=== PATIENT | female | born 1935 | race Caucasian/White ===

== ENCOUNTER 2017-05-03 15:54 | Inpatient (IN) | payer BC ==
[2017-05-03 16:26] LABS: WHITE BLOOD COUNT 24.1 10^3/ul (4.8-10.8)
[2017-05-03 16:26] LABS: ABNORMAL IP MESSAGE 1; HEMOGLOBIN 7.4 g/dl (12.0-16.0); MEAN CORPUSCULAR HGB CONC 30.8 g/dl (32.0-37.0); MEAN CORPUSCULAR VOLUME 97.2 fl (82.0-101.0); MEAN PLATELET VOLUME 11.1 fl (7.4-10.4); NUCLEATED RED BLOOD CELLS% 1.2 /100WBC (0.0-0.0); PLATELET COUNT 202 10^3/UL (140-415); RED BLOOD COUNT 2.47 10^6/ul (4.20-5.40); RED CELL DISTRIBUTION WIDTH 19.3 % (11.5-14.5)
[2017-05-03 16:28] LABS: POSITIVE DIFF @See below
[2017-05-03 16:29] LABS: ADD MAN DIFF? YES
[2017-05-03] MEDS: SOD CHLORIDE 0.9% 1,000 ML IV ×2 (16:34)
[2017-05-03] MEDS: PIPER-TAZO 3.375 GM IV (PMX) 50 ML IVPB (16:34)
[2017-05-03 16:41] LABS: INR 1.32; PROTIME 16.6 Sec (11.9-14.9); PT RATIO 1.3
[2017-05-03 16:42] LABS: PARTIAL THROMBOPLASTIN TIME 31.5 Sec (25.0-35.0)
[2017-05-03] MEDS: VANCOMYCIN 1 GM (PMX) 250 ML IVPB (16:46)
[2017-05-03 16:48] LABS: ALANINE AMINOTRANSFERASE 52 IU/L (13-69); ALBUMIN 3.2 g/dl (3.3-4.9); ALBUMIN/GLOBULIN RATIO 0.88; ALKALINE PHOSPHATASE 250 IU/L (42-121); ANION GAP 23 (8-16); ASPARTATE AMINO TRANSFERASE 68 IU/L (15-46); BILIRUBIN,INDIRECT 0.2 mg/dl (0-1.1); BILIRUBIN,TOTAL 0.2 mg/dl (0.2-1.3); BLOOD UREA NITROGEN 80 mg/dl (7-20); CALCIUM 9.4 mg/dl (8.4-10.2); CARBON DIOXIDE 25 mmol/L (21-31); CHLORIDE 100 mmol/L (97-110); CREATININE 3.32 mg/dl (0.44-1.00); GLUCOSE 126 mg/dl (70-220); POTASSIUM 5.7 mmol/L (3.5-5.1); SODIUM 142 mmol/L (135-144); TOTAL PROTEIN 6.8 g/dl (6.1-8.1)
[2017-05-03 16:57] LABS: TROPONIN-I 0.072 ng/ml (0.00-0.12)
[2017-05-03 16:57] LABS: LACTIC ACID 2.1 mmol/L (0.5-2.0)
[2017-05-03 17:03] LABS: ANISOCYTOSIS 1+ (0-0); BAND NEUTROPHILS #M 0.9 10^3/ul (0.0-0.6); BAND NEUTROPHILS % (M) 4 % (0-4); EOSINOPHILS % (M) 2 % (0-7); ERYTHROBLAST% (NRBC) (M) 1 % (0-0); LYMPHOCYTES #M 5.7 10^3/ul (0.8-2.9); LYMPHOCYTES % (M) 24 % (15-51); MICROCYTOSIS 1+ (0-0); MONOCYTE #M 1.2 10^3/ul (0.3-0.9); MONOCYTES % (M) 5 % (0-11); MYELOCYTES #M 0.2 10^3/ul (0.0-0.0); MYELOCYTES % (M) 1 % (0-0); PLATELET ESTIMATE NORMAL; POLYCHROMASIA 1+ (0-0); PROMYELOCYTES #M 0.7 10^3/ul (0-0); PROMYELOCYTES % (M) 3 % (0-0); REACTIVE LYMPHOCYTES #M 3.3 10^3/ul (0.0-0.0); REACTIVE LYMPHOCYTES% (M) 14 % (0-0); SEG NEUT #M 11.5 10^3/ul (1.7-7.5); SEGMENTED NEUTROPHILS (M) % 47 % (39-77); SMUDGE%M 10 % (0-0)
[2017-05-03] MEDS ORDERED: ONDANSETRON 4 MG INJ IV (19:30)
[2017-05-03] MEDS ORDERED: VANCOMYCIN IV PER PHARMACY XX (19:30)
[2017-05-03] MEDS ORDERED: NACL 0.9% 3 ML SYG IV (19:30)
[2017-05-03 20:11] LABS: LACTIC ACID 1.1 mmol/L (0.5-2.0)
[2017-05-03] MEDS: PANTOPRAZOLE 40 MG INJ IV (20:31)
[2017-05-03] MEDS: CEFEPIME 2GM/50 ML (PMX) 50 ML IVPB (20:31)
[2017-05-03] MEDS ORDERED: PIPER-TAZO 3.375 GM IV (PMX) 50 ML IVPB (22:00)
[2017-05-03] MEDS: SOD CHLORIDE 0.45% 1,000 ML IV (22:15)
[2017-05-04 05:29] LABS: WHITE BLOOD COUNT 10.9 10^3/ul (4.8-10.8)
[2017-05-04 05:29] LABS: ABNORMAL IP MESSAGE 1; HEMOGLOBIN 7.7 g/dl (12.0-16.0); MEAN CORPUSCULAR HEMOGLOBIN 31.2 pg (29.0-33.0); MEAN CORPUSCULAR HGB CONC 32.1 g/dl (32.0-37.0); MEAN CORPUSCULAR VOLUME 97.2 fl (82.0-101.0); MEAN PLATELET VOLUME 11.4 fl (7.4-10.4); NUCLEATED RED BLOOD CELLS% 0.8 /100WBC (0.0-0.0); PLATELET COUNT 156 10^3/UL (140-415); RED BLOOD COUNT 2.47 10^6/ul (4.20-5.40)
[2017-05-04] MEDS: PANTOPRAZOLE 40 MG INJ IV (05:39)
[2017-05-04 05:54] LABS: ALANINE AMINOTRANSFERASE 47 IU/L (13-69); ALBUMIN 2.6 g/dl (3.3-4.9); ALBUMIN/GLOBULIN RATIO 0.81; ALKALINE PHOSPHATASE 206 IU/L (42-121); ANION GAP 18 (8-16); ASPARTATE AMINO TRANSFERASE 60 IU/L (15-46); BILIRUBIN,INDIRECT 0.2 mg/dl (0-1.1); BILIRUBIN,TOTAL 0.2 mg/dl (0.2-1.3); BLOOD UREA NITROGEN 82 mg/dl (7-20); CALCIUM 8.3 mg/dl (8.4-10.2); CARBON DIOXIDE 20 mmol/L (21-31); CHLORIDE 107 mmol/L (97-110); CREATININE 3.29 mg/dl (0.44-1.00); GLUCOSE 95 mg/dl (70-220); MAGNESIUM 2.4 mg/dl (1.7-2.5); PHOSPHORUS 6.7 mg/dl (2.5-4.9); POTASSIUM 4.9 mmol/L (3.5-5.1); SODIUM 140 mmol/L (135-144); TOTAL PROTEIN 5.8 g/dl (6.1-8.1)
[2017-05-04 06:02] LABS: POSITIVE DIFF @See below
[2017-05-04] MEDS: SOD CHLORIDE 0.45% 1,000 ML IV (06:13)
[2017-05-04 06:31] LABS: ADD MAN DIFF? YES
[2017-05-04 08:31] LABS: AADO2 Arterial 134.5 mmHg (7.0-24.0); Allen Test ACCEPTAB; Arterial Base Excess -4.2 mmol/L (-3.0-3); Arterial HCO3 18.8 mmol/L (22.0-26.0); Arterial pCO2 29.2 mmhg (35-45); Blood Gas Low PEEP Setting 0 cmH2O; MODE VENT - AC; Site Right Radial
[2017-05-04 09:15] LABS: IMMEDIATE SPIN CROSSMATCH 1 2
[2017-05-04 09:23] LABS: ANISOCYTOSIS 2+ (0-0); BAND NEUTROPHILS #M 0.9 10^3/ul (0.0-0.6); BAND NEUTROPHILS % (M) 9 % (0-4); EOSINOPHILS % (M) 4 % (0-7); ERYTHROBLAST% (NRBC) (M) 3 % (0-0); GIANT THROMBO% (M) 1 % (0-0); LYMPHOCYTES #M 1.5 10^3/ul (0.8-2.9); LYMPHOCYTES % (M) 14 % (15-51); METAMYELOCYTES #M 0.3 10^3/ul (0.0-0.0); METAMYELOCYTES %M 3 % (0-0); MICROCYTOSIS 1+ (0-0); MONOCYTE #M 0.2 10^3/ul (0.3-0.9); MONOCYTES % (M) 2 % (0-11); PLATELET ESTIMATE NORMAL; POLYCHROMASIA 3+ (0-0); SEG NEUT #M 7.4 10^3/ul (1.7-7.5); SEGMENTED NEUTROPHILS (M) % 67 % (39-77); SMUDGE%M 1 % (0-0)
[2017-05-04] MEDS: LIDOCAINE 1% (MPF) 5 ML VIAL SC (10:30)
[2017-05-04] MEDS: CEFEPIME 1GM/50 ML (PMX) 50 ML IVPB (10:30)
[2017-05-04] MEDS: PANTOPRAZOLE IV 80 MG in SOD CHLORIDE 0.9% 100 ML IV ×2 (14:03→21:51)
[2017-05-04 14:57] LABS: HEMATOCRIT 27.7 % (37.0-47.0); HEMOGLOBIN 9.1 g/dl (12.0-16.0)
[2017-05-04] MEDS: EPOETIN 10000 UNITS/1 ML INJ (ESRD) SC (16:28)
[2017-05-04] MEDS: IOHEXOL 300MG/ML 30 ML BTL ×2 (16:41)
[2017-05-04] MEDS: MEROPENEM 500MG/50 ML (PMX) 50 ML IVPB (17:20)
[2017-05-04] MEDS: LEVOFLOXACIN 750MG/D5W (PMX) 150 ML IVPB (18:00)
[2017-05-04 19:08] LABS: HEMATOCRIT 23.9 % (37.0-47.0); HEMOGLOBIN 7.8 g/dl (12.0-16.0)
[2017-05-05 01:05] LABS: HEMATOCRIT 24.8 % (37.0-47.0); HEMOGLOBIN 8.4 g/dl (12.0-16.0)
[2017-05-05 05:44] LABS: ADD MAN DIFF? NO
[2017-05-05 06:54] LABS: VANCOMYCIN,RANDOM 13.1 ug/ml
[2017-05-05 08:36] LABS: WHITE BLOOD COUNT 7.3 10^3/ul (4.8-10.8)
[2017-05-05 08:36] LABS: ABNORMAL IP MESSAGE 1; BASOPHILS % 0.4 % (0.0-2.0); EOSINOPHILS # 0.3 10^3/ul (0.0-0.5); EOSINOPHILS % 3.8 % (0.0-7.0); HEMATOCRIT 25.6 % (37.0-47.0); HEMOGLOBIN 8.7 g/dl (12.0-16.0); LYMPHOCYTES # 1.6 10^3/ul (0.8-2.9); LYMPHOCYTES % 21.8 % (15.0-51.0); MEAN CORPUSCULAR HEMOGLOBIN 31.1 pg (29.0-33.0); MEAN CORPUSCULAR VOLUME 91.4 fl (82.0-101.0); MEAN PLATELET VOLUME 11.3 fl (7.4-10.4); MONOCYTE # 0.4 10^3/ul (0.3-0.9); MONOCYTES % 4.8 % (0.0-11.0); NEUTROPHIL # 4.6 10^3/ul (1.6-7.5); NEUTROPHILS % 62.7 % (39.0-77.0); NUCLEATED RED BLOOD CELLS # 0.1 10^3/ul (0.0-0.0); PLATELET COUNT 132 10^3/UL (140-415); RED CELL DISTRIBUTION WIDTH 17.4 % (11.5-14.5)
[2017-05-05 08:37] LABS: POSITIVE DIFF @See below
[2017-05-05] MEDS: PANTOPRAZOLE IV 80 MG in SOD CHLORIDE 0.9% 100 ML IV ×2 (09:02→18:06)
[2017-05-05 09:19] LABS: ANION GAP 18 (8-16); BLOOD UREA NITROGEN 51 mg/dl (7-20); CALCIUM 7.8 mg/dl (8.4-10.2); CARBON DIOXIDE 19 mmol/L (21-31); CHLORIDE 105 mmol/L (97-110); CREATININE 2.06 mg/dl (0.44-1.00); GLUCOSE 76 mg/dl (70-220); PHOSPHORUS 5.6 mg/dl (2.5-4.9); POTASSIUM 3.8 mmol/L (3.5-5.1); SODIUM 138 mmol/L (135-144)
[2017-05-05 09:42] LABS: ANISOCYTOSIS 1+ (0-0); BAND NEUTROPHILS #M 0.9 10^3/ul (0.0-0.6); BAND NEUTROPHILS % (M) 13 % (0-4); EOSINOPHILS % (M) 1 % (0-7); ERYTHROBLAST% (NRBC) (M) 1 % (0-0); LYMPHOCYTES #M 0.6 10^3/ul (0.8-2.9); LYMPHOCYTES % (M) 9 % (15-51); METAMYELOCYTES %M 1 % (0-0); MICROCYTOSIS 1+ (0-0); MONOCYTE #M 0.2 10^3/ul (0.3-0.9); MONOCYTES % (M) 3 % (0-11); PLATELET ESTIMATE DECREASED; POIKILOCYTOSIS 1+ (0-0); POLYCHROMASIA 3+ (0-0); REACTIVE LYMPHOCYTES #M 0.8 10^3/ul (0.0-0.0); REACTIVE LYMPHOCYTES% (M) 11 % (0-0); SEG NEUT #M 4.7 10^3/ul (1.7-7.5); SEGMENTED NEUTROPHILS (M) % 63 % (39-77); SMUDGE%M 2 % (0-0)
[2017-05-05] MEDS ORDERED: CEFEPIME 1GM/50 ML (PMX) 50 ML IVPB (12:00)
[2017-05-05 12:23] LABS: HEMATOCRIT 25.6 % (37.0-47.0); HEMOGLOBIN 8.6 g/dl (12.0-16.0)
[2017-05-05] MEDS: NYSTATIN SUSP 5 ML CUP PO ×3 (13:18→21:00)
[2017-05-05] MEDS: VANCOMYCIN 1 GM in NS 250 ML IVPB (16:09)
[2017-05-05] MEDS: MEROPENEM 500MG/50 ML (PMX) 50 ML IVPB (18:06)
[2017-05-05 19:07] LABS: HEMATOCRIT 23.3 % (37.0-47.0); HEMOGLOBIN 7.7 g/dl (12.0-16.0)
[2017-05-06] MEDS: PANTOPRAZOLE IV 80 MG in SOD CHLORIDE 0.9% 100 ML IV ×2 (03:00→05:42)
[2017-05-06] MEDS ORDERED: DIATR MEGLU/DIATRIZOATE SODIUM 120 ML BTL (09:36)
[2017-05-06 09:37] LABS: HEMATOCRIT 27.3 % (37.0-47.0); HEMOGLOBIN 8.8 g/dl (12.0-16.0); MEAN CORPUSCULAR HEMOGLOBIN 30.9 pg (29.0-33.0); MEAN CORPUSCULAR HGB CONC 32.2 g/dl (32.0-37.0); MEAN CORPUSCULAR VOLUME 95.8 fl (82.0-101.0); MEAN PLATELET VOLUME 11.9 fl (7.4-10.4); NUCLEATED RED BLOOD CELLS% 0.7 /100WBC (0.0-0.0); PLATELET COUNT 137 10^3/UL (140-415); RED BLOOD COUNT 2.85 10^6/ul (4.20-5.40); RED CELL DISTRIBUTION WIDTH 17.5 % (11.5-14.5)
[2017-05-06 09:37] LABS: WHITE BLOOD COUNT 6.9 10^3/ul (4.8-10.8)
[2017-05-06 09:49] LABS: POSITIVE DIFF @See below
[2017-05-06 09:50] LABS: ADD MAN DIFF? YES
[2017-05-06] MEDS: NYSTATIN SUSP 5 ML CUP PO ×4 (10:01→22:08)
[2017-05-06 10:08] LABS: ANION GAP 17 (8-16); BLOOD UREA NITROGEN 63 mg/dl (7-20); CALCIUM 8.6 mg/dl (8.4-10.2); CARBON DIOXIDE 20 mmol/L (21-31); CHLORIDE 105 mmol/L (97-110); CREATININE 2.82 mg/dl (0.44-1.00); GLUCOSE 54 mg/dl (70-220); MAGNESIUM 2.2 mg/dl (1.7-2.5); PHOSPHORUS 8.3 mg/dl (2.5-4.9); POTASSIUM 4.2 mmol/L (3.5-5.1); SODIUM 138 mmol/L (135-144)
[2017-05-06 11:04] LABS: ANISOCYTOSIS 2+ (0-0); BAND NEUTROPHILS % (M) 1 % (0-4); EOSINOPHILS % (M) 4 % (0-7); ERYTHROBLAST% (NRBC) (M) 1 % (0-0); GIANT THROMBO% (M) 2 % (0-0); LYMPHOCYTES #M 1.9 10^3/ul (0.8-2.9); LYMPHOCYTES % (M) 28 % (15-51); MICROCYTOSIS 1+ (0-0); MONOCYTE #M 0.2 10^3/ul (0.3-0.9); MONOCYTES % (M) 4 % (0-11); PLATELET ESTIMATE NORMAL; POIKILOCYTOSIS 2+ (0-0); POLYCHROMASIA 3+ (0-0); REACTIVE LYMPHOCYTES #M 0.2 10^3/ul (0.0-0.0); REACTIVE LYMPHOCYTES% (M) 3 % (0-0); SEG NEUT #M 4.1 10^3/ul (1.7-7.5); SEGMENTED NEUTROPHILS (M) % 60 % (39-77)
[2017-05-06 15:06] LABS: CREATINE KINASE 40 IU/L (23-200)
[2017-05-06] MEDS ORDERED: LEVOFLOXACIN 500MG/D5W (PMX) 100 ML IVPB (18:00)
[2017-05-06] MEDS: EPOETIN 10000 UNITS/1 ML INJ (ESRD) SC (18:29)
[2017-05-06] MEDS: COLISTIMETHATE 75 MG in SOD CHLORIDE 0.9% 100 ML IVPB (18:29)
[2017-05-06] MEDS: DAPTOMYCIN 325 MG in SOD CHLORIDE 0.9% 100 ML IVPB (22:08)
[2017-05-07] MEDS: PANTOPRAZOLE IV 80 MG in SOD CHLORIDE 0.9% 100 ML IV ×3 (00:16→21:49)
[2017-05-07] MEDS: COLLAGENASE 30 GM TUBE TOP (09:00)
[2017-05-07] MEDS: NYSTATIN SUSP 5 ML CUP PO ×4 (09:19→21:49)
[2017-05-07] MEDS: COLISTIMETHATE 75 MG in SOD CHLORIDE 0.9% 100 ML IVPB (17:56)
[2017-05-07] MEDS: morphine 2 MG INJ IV (22:10)
[2017-05-08] MEDS: SOD CHLORIDE 0.9% 250 ML IV (02:28)
[2017-05-08] MEDS: LORAZEPAM 2 MG INJ IV (02:29)
[2017-05-08] MEDS: ACETAMINOPHEN 650MG/20.3ML CUP GTB (02:29)
[2017-05-08 06:38] LABS: WHITE BLOOD COUNT 7.3 10^3/ul (4.8-10.8)
[2017-05-08 06:38] LABS: HEMATOCRIT 22.8 % (37.0-47.0); HEMOGLOBIN 7.2 g/dl (12.0-16.0); MEAN CORPUSCULAR HGB CONC 31.6 g/dl (32.0-37.0); MEAN CORPUSCULAR VOLUME 98.3 fl (82.0-101.0); MEAN PLATELET VOLUME 11.4 fl (7.4-10.4); PLATELET COUNT 134 10^3/UL (140-415); RED BLOOD COUNT 2.32 10^6/ul (4.20-5.40); RED CELL DISTRIBUTION WIDTH 18.5 % (11.5-14.5)
[2017-05-08] MEDS: PANTOPRAZOLE IV 80 MG in SOD CHLORIDE 0.9% 100 ML IV ×2 (07:01→21:27)
[2017-05-08 07:05] LABS: ALANINE AMINOTRANSFERASE 39 IU/L (13-69); ALBUMIN 2.5 g/dl (3.3-4.9); ALKALINE PHOSPHATASE 178 IU/L (42-121); ASPARTATE AMINO TRANSFERASE 37 IU/L (15-46); BILIRUBIN,INDIRECT 0.3 mg/dl (0-1.1); BILIRUBIN,TOTAL 0.3 mg/dl (0.2-1.3); TOTAL PROTEIN 5.6 g/dl (6.1-8.1)
[2017-05-08 07:09] LABS: ANION GAP 17 (8-16); BLOOD UREA NITROGEN 48 mg/dl (7-20); CALCIUM 8.2 mg/dl (8.4-10.2); CARBON DIOXIDE 23 mmol/L (21-31); CHLORIDE 111 mmol/L (97-110); CREATININE 2.86 mg/dl (0.44-1.00); GLUCOSE 149 mg/dl (70-220); MAGNESIUM 2.3 mg/dl (1.7-2.5); PHOSPHORUS 6.9 mg/dl (2.5-4.9); POTASSIUM 4.1 mmol/L (3.5-5.1); SODIUM 147 mmol/L (135-144)
[2017-05-08 07:11] LABS: ADD MAN DIFF? YES; POSITIVE DIFF @See below
[2017-05-08 07:18] LABS: IRON 145 ug/dl (35-150)
[2017-05-08 07:27] LABS: % IRON SATURATION 90 % SAT (22-52); TOTAL IRON BINDING CAPACITY 162 ug/dl (241-421)
[2017-05-08] MEDS: COLLAGENASE 30 GM TUBE TOP (09:22)
[2017-05-08] MEDS: NYSTATIN SUSP 5 ML CUP PO ×4 (09:22→21:27)
[2017-05-08 11:23] LABS: ANISOCYTOSIS 2+ (0-0); BAND NEUTROPHILS #M 0.3 10^3/ul (0.0-0.6); BAND NEUTROPHILS % (M) 5 % (0-4); BASOPHILS % (M) 1 % (0-2); EOSINOPHILS % (M) 2 % (0-7); LYMPHOCYTES % (M) 14 % (15-51); METAMYELOCYTES %M 1 % (0-0); MICROCYTOSIS 2+ (0-0); MONOCYTES % (M) 15 % (0-11); PLATELET ESTIMATE NORMAL; PROMYELOCYTES % (M) 1 % (0-0); REACTIVE LYMPHOCYTES #M 1.5 10^3/ul (0.0-0.0); REACTIVE LYMPHOCYTES% (M) 21 % (0-0); SEGMENTED NEUTROPHILS (M) % 41 % (39-77); SMUDGE%M 4 % (0-0)
[2017-05-08] MEDS: COLISTIMETHATE 75 MG in SOD CHLORIDE 0.9% 100 ML IVPB (18:47)
[2017-05-08] MEDS: DAPTOMYCIN 325 MG in SOD CHLORIDE 0.9% 100 ML IVPB (21:24)
[2017-05-08] MEDS: ACYCLOVIR 400 MG TAB GTB (21:41)
[2017-05-09] MEDS: PANTOPRAZOLE IV 80 MG in SOD CHLORIDE 0.9% 100 ML IV ×2 (06:00→08:56)
[2017-05-09] MEDS: NYSTATIN SUSP 5 ML CUP PO ×4 (08:52→21:00)
[2017-05-09] MEDS: COLLAGENASE 30 GM TUBE TOP (08:53)
[2017-05-09] MEDS: ACYCLOVIR 400 MG TAB GTB (08:53)
[2017-05-09 10:25] LABS: HEMOGLOBIN 7.3 g/dl (12.0-16.0); MEAN CORPUSCULAR HEMOGLOBIN 31.7 pg (29.0-33.0); MEAN CORPUSCULAR HGB CONC 31.7 g/dl (32.0-37.0); MEAN PLATELET VOLUME 11.2 fl (7.4-10.4); NUCLEATED RED BLOOD CELLS% 1.9 /100WBC (0.0-0.0); PLATELET COUNT 134 10^3/UL (140-415); RED CELL DISTRIBUTION WIDTH 18.9 % (11.5-14.5)
[2017-05-09 10:25] LABS: WHITE BLOOD COUNT 8.6 10^3/ul (4.8-10.8)
[2017-05-09 10:35] LABS: POSITIVE DIFF @See below
[2017-05-09 10:36] LABS: ADD MAN DIFF? YES
[2017-05-09 10:54] LABS: ANION GAP 15 (8-16); BLOOD UREA NITROGEN 38 mg/dl (7-20); CALCIUM 8.2 mg/dl (8.4-10.2); CARBON DIOXIDE 25 mmol/L (21-31); CHLORIDE 111 mmol/L (97-110); CREATININE 2.53 mg/dl (0.44-1.00); GLUCOSE 138 mg/dl (70-220); POTASSIUM 3.5 mmol/L (3.5-5.1); SODIUM 147 mmol/L (135-144)
[2017-05-09 11:36] LABS: ANISOCYTOSIS 1+ (0-0); BAND NEUTROPHILS #M 0.5 10^3/ul (0.0-0.6); BAND NEUTROPHILS % (M) 6 % (0-4); EOSINOPHILS % (M) 9 % (0-7); ERYTHROBLAST% (NRBC) (M) 3 % (0-0); LYMPHOCYTES #M 2.5 10^3/ul (0.8-2.9); LYMPHOCYTES % (M) 30 % (15-51); MICROCYTOSIS 1+ (0-0); MONOCYTE #M 0.4 10^3/ul (0.3-0.9); MONOCYTES % (M) 5 % (0-11); PLATELET ESTIMATE NORMAL; POIKILOCYTOSIS 1+ (0-0); POLYCHROMASIA 3+ (0-0); REACTIVE LYMPHOCYTES #M 0.1 10^3/ul (0.0-0.0); REACTIVE LYMPHOCYTES% (M) 2 % (0-0); SEG NEUT #M 4.3 10^3/ul (1.7-7.5); SEGMENTED NEUTROPHILS (M) % 49 % (39-77); SMUDGE%M 1 % (0-0)
[2017-05-09] MEDS: LANSOPRAZOLE 30 MG CAP GTB (17:12)
[2017-05-09] MEDS: EPOETIN 10000 UNITS/1 ML INJ (ESRD) SC (17:13)
[2017-05-09] MEDS: COLISTIMETHATE 75 MG in SOD CHLORIDE 0.9% 100 ML IVPB (23:47)
[2017-05-10] MEDS: LANSOPRAZOLE 30 MG CAP GTB ×2 (05:23→18:30)
[2017-05-10 07:16] LABS: PROCALCITONIN 2.88 ng/mL (<0.10)
[2017-05-10] MEDS: NYSTATIN SUSP 5 ML CUP PO ×4 (08:45→21:19)
[2017-05-10] MEDS: COLLAGENASE 30 GM TUBE TOP (08:45)
[2017-05-10 08:51] LABS: WHITE BLOOD COUNT 6.9 10^3/ul (4.8-10.8)
[2017-05-10 08:51] LABS: ABNORMAL IP MESSAGE 1; HEMATOCRIT 22.1 % (37.0-47.0); MEAN CORPUSCULAR HEMOGLOBIN 30.9 pg (29.0-33.0); MEAN CORPUSCULAR HGB CONC 30.8 g/dl (32.0-37.0); MEAN CORPUSCULAR VOLUME 100.5 fl (82.0-101.0); MEAN PLATELET VOLUME 11.2 fl (7.4-10.4); NUCLEATED RED BLOOD CELLS% 1.5 /100WBC (0.0-0.0); PLATELET COUNT 134 10^3/UL (140-415); RED CELL DISTRIBUTION WIDTH 19.3 % (11.5-14.5)
[2017-05-10 09:06] LABS: ADD MAN DIFF? YES; HEMOGLOBIN 6.8 g/dl (12.0-16.0); POSITIVE DIFF @See below
[2017-05-10] MEDS: ACETAMINOPHEN 650MG/20.3ML CUP GTB (09:42)
[2017-05-10 10:25] LABS: ANION GAP 15 (8-16); BLOOD UREA NITROGEN 48 mg/dl (7-20); CALCIUM 8.3 mg/dl (8.4-10.2); CARBON DIOXIDE 24 mmol/L (21-31); CHLORIDE 109 mmol/L (97-110); CREATININE 3.01 mg/dl (0.44-1.00); GLUCOSE 104 mg/dl (70-220); MAGNESIUM 2.3 mg/dl (1.7-2.5); PHOSPHORUS 5.3 mg/dl (2.5-4.9); POTASSIUM 4.2 mmol/L (3.5-5.1); SODIUM 144 mmol/L (135-144)
[2017-05-10 10:30] LABS: ANISOCYTOSIS 1+ (0-0); BAND NEUTROPHILS #M 1.1 10^3/ul (0.0-0.6); BAND NEUTROPHILS % (M) 16 % (0-4); EOSINOPHILS % (M) 15 % (0-7); ERYTHROBLAST% (NRBC) (M) 2 % (0-0); LYMPHOCYTES #M 2.9 10^3/ul (0.8-2.9); LYMPHOCYTES % (M) 43 % (15-51); METAMYELOCYTES %M 1 % (0-0); MONOCYTE #M 0.2 10^3/ul (0.3-0.9); MONOCYTES % (M) 3 % (0-11); OVALOCYTES 1+ (0-0); PLATELET ESTIMATE DECREASED; PROMYELOCYTES % (M) 1 % (0-0); SEG NEUT #M 1.5 10^3/ul (1.7-7.5); SEGMENTED NEUTROPHILS (M) % 21 % (39-77)
[2017-05-10 16:08] LABS: LACTIC ACID 2.1 mmol/L (0.5-2.0)
[2017-05-10] MEDS: COLISTIMETHATE 75 MG in SOD CHLORIDE 0.9% 100 ML IVPB (18:09)
[2017-05-10] MEDS: DAPTOMYCIN 325 MG in SOD CHLORIDE 0.9% 100 ML IVPB (21:19)
[2017-05-10 22:28] LABS: IMMEDIATE SPIN CROSSMATCH 1 2
[2017-05-11] MEDS: LANSOPRAZOLE 30 MG CAP GTB ×2 (05:32→17:17)
[2017-05-11] MEDS: COLLAGENASE 30 GM TUBE TOP (08:23)
[2017-05-11] MEDS: NYSTATIN SUSP 5 ML CUP PO ×4 (08:23→21:20)
[2017-05-11 08:51] LABS: WHITE BLOOD COUNT 6.4 10^3/ul (4.8-10.8)
[2017-05-11 08:51] LABS: ABNORMAL IP MESSAGE 1; HEMATOCRIT 23.8 % (37.0-47.0); HEMOGLOBIN 7.6 g/dl (12.0-16.0); MEAN CORPUSCULAR HEMOGLOBIN 30.6 pg (29.0-33.0); MEAN CORPUSCULAR HGB CONC 31.9 g/dl (32.0-37.0); MEAN PLATELET VOLUME 11.1 fl (7.4-10.4); NUCLEATED RED BLOOD CELLS% 0.6 /100WBC (0.0-0.0); RED BLOOD COUNT 2.48 10^6/ul (4.20-5.40); RED CELL DISTRIBUTION WIDTH 18.3 % (11.5-14.5)
[2017-05-11 09:01] LABS: ADD MAN DIFF? YES; PLATELET COUNT 99 10^3/UL (140-415); POSITIVE DIFF @See below
[2017-05-11 09:47] LABS: ANION GAP 12 (8-16); BLOOD UREA NITROGEN 34 mg/dl (7-20); CALCIUM 8.6 mg/dl (8.4-10.2); CARBON DIOXIDE 28 mmol/L (21-31); CHLORIDE 101 mmol/L (97-110); CREATININE 2.33 mg/dl (0.44-1.00); GLUCOSE 104 mg/dl (70-220); MAGNESIUM 2.1 mg/dl (1.7-2.5); PHOSPHORUS 4.5 mg/dl (2.5-4.9); POTASSIUM 4.1 mmol/L (3.5-5.1); SODIUM 137 mmol/L (135-144)
[2017-05-11 10:43] LABS: ANISOCYTOSIS 1+ (0-0); BAND NEUTROPHILS #M 1.4 10^3/ul (0.0-0.6); BAND NEUTROPHILS % (M) 23 % (0-4); EOSINOPHILS % (M) 9 % (0-7); GIANT THROMBO% (M) 4 % (0-0); HYPOCHROMASIA 1+ (0-0); LYMPHOCYTES #M 1.5 10^3/ul (0.8-2.9); LYMPHOCYTES % (M) 24 % (15-51); METAMYELOCYTES #M 0.1 10^3/ul (0.0-0.0); METAMYELOCYTES %M 3 % (0-0); MICROCYTOSIS 1+ (0-0); MONOCYTE #M 0.5 10^3/ul (0.3-0.9); MONOCYTES % (M) 8 % (0-11); PLATELET ESTIMATE DECREASED; POLYCHROMASIA 1+ (0-0); REACTIVE LYMPHOCYTES #M 0.1 10^3/ul (0.0-0.0); REACTIVE LYMPHOCYTES% (M) 2 % (0-0); SEG NEUT #M 2.1 10^3/ul (1.7-7.5); SEGMENTED NEUTROPHILS (M) % 31 % (39-77); SMUDGE%M 7 % (0-0)
[2017-05-11] MEDS ORDERED: ALBUTEROL 0.083% (NEB) 2.5 MG/3 ML AMP HHN (11:30)
[2017-05-11] MEDS ORDERED: traMADol 50 MG TAB GTB (11:30)
[2017-05-11] MEDS ORDERED: ALBUTEROL/IPRATROPIUM (NEB) 3 ML AMP INH (12:00)
[2017-05-11] MEDS: L ACIDOPHIL/B LACTIS/B LONGUM CAPSULE PO ×2 (14:43→21:20)
[2017-05-11] MEDS ORDERED: ALBUTEROL HFA 8 GM INHALER INH (15:00)
[2017-05-11] MEDS: ALBUTEROL HFA 8 GM INHALER INH ×2 (16:52→19:29)
[2017-05-11] MEDS: IPRATROPIUM (HFA) 12.9 GM INHALER INH ×2 (16:55→19:28)
[2017-05-11] MEDS: EPOETIN 10000 UNITS/1 ML INJ (ESRD) SC (17:18)
[2017-05-11] MEDS: COLISTIMETHATE 75 MG in SOD CHLORIDE 0.9% 100 ML IVPB (18:36)
[2017-05-11] MEDS ORDERED: PROTEIN SUPPLEMENT GTB (21:00)
[2017-05-11] MEDS: QUETIAPINE 25 MG TAB GTB (21:20)
[2017-05-11] MEDS: DIVALPROEX SPRINKLE 125 MG CAP GTB (21:21)
[2017-05-12] MEDS: IPRATROPIUM (HFA) 12.9 GM INHALER INH ×4 (01:14→19:54)
[2017-05-12] MEDS: ALBUTEROL HFA 8 GM INHALER INH ×2 (01:15→08:08)
[2017-05-12] MEDS: LEVOTHYROXINE 75 MCG TAB GTB (06:23)
[2017-05-12] MEDS: LANSOPRAZOLE 30 MG CAP GTB ×2 (06:24→17:44)
[2017-05-12] MEDS: L ACIDOPHIL/B LACTIS/B LONGUM CAPSULE PO ×3 (06:24→21:24)
[2017-05-12] MEDS: NYSTATIN SUSP 5 ML CUP PO ×4 (08:55→21:23)
[2017-05-12] MEDS: COLLAGENASE 30 GM TUBE TOP (08:56)
[2017-05-12] MEDS: FOLIC ACID 1 MG TAB GTB (08:56)
[2017-05-12] MEDS: SILVER SULFADIAZINE 1% 50 GM CR TOP (08:56)
[2017-05-12] MEDS: MULTIVIT/CA CARB/B CMPLX/FA TAB GTB (08:56)
[2017-05-12 09:20] LABS: WHITE BLOOD COUNT 8.4 10^3/ul (4.8-10.8)
[2017-05-12 09:20] LABS: ABNORMAL IP MESSAGE 1; HEMATOCRIT 29.6 % (37.0-47.0); HEMOGLOBIN 9.7 g/dl (12.0-16.0); MEAN CORPUSCULAR HGB CONC 32.8 g/dl (32.0-37.0); MEAN CORPUSCULAR VOLUME 94.6 fl (82.0-101.0); MEAN PLATELET VOLUME 10.7 fl (7.4-10.4); NUCLEATED RED BLOOD CELLS% 0.4 /100WBC (0.0-0.0); RED BLOOD COUNT 3.13 10^6/ul (4.20-5.40)
[2017-05-12 09:21] LABS: PLATELET COUNT 128 10^3/UL (140-415); POSITIVE DIFF @See below
[2017-05-12 09:22] LABS: ADD MAN DIFF? YES
[2017-05-12 09:37] LABS: ANION GAP 16 (8-16); BLOOD UREA NITROGEN 42 mg/dl (7-20); CALCIUM 9.5 mg/dl (8.4-10.2); CARBON DIOXIDE 27 mmol/L (21-31); CHLORIDE 97 mmol/L (97-110); CREATININE 2.75 mg/dl (0.44-1.00); GLUCOSE 106 mg/dl (70-220); MAGNESIUM 2.3 mg/dl (1.7-2.5); PHOSPHORUS 5.4 mg/dl (2.5-4.9); POTASSIUM 4.8 mmol/L (3.5-5.1); SODIUM 135 mmol/L (135-144)
[2017-05-12] MEDS ORDERED: LEVALBUTEROL (NEB) 0.63 MG/3 ML AMP HHN (10:30)
[2017-05-12] MEDS: traMADol 50 MG TAB GTB ×2 (12:54→17:44)
[2017-05-12 12:55] LABS: ANISOCYTOSIS 2+ (0-0); BAND NEUTROPHILS % (M) 13 % (0-4); EOSINOPHILS % (M) 4 % (0-7); LYMPHOCYTES #M 2.3 10^3/ul (0.8-2.9); LYMPHOCYTES % (M) 28 % (15-51); METAMYELOCYTES %M 1 % (0-0); MICROCYTOSIS 1+ (0-0); MONOCYTE #M 0.5 10^3/ul (0.3-0.9); MONOCYTES % (M) 7 % (0-11); PLATELET ESTIMATE INCREASED; REACTIVE LYMPHOCYTES% (M) 1 % (0-0); SEG NEUT #M 3.9 10^3/ul (1.7-7.5); SEGMENTED NEUTROPHILS (M) % 46 % (39-77); SMUDGE%M 2 % (0-0)
[2017-05-12] MEDS: ALPRAZOLAM 0.25 MG TAB GTB (13:47)
[2017-05-12] MEDS: COLISTIMETHATE 75 MG in SOD CHLORIDE 0.9% 100 ML IVPB (17:45)
[2017-05-12] MEDS: ACETAMINOPHEN 650MG/20.3ML CUP GTB (21:23)
[2017-05-12] MEDS: DAPTOMYCIN 325 MG in SOD CHLORIDE 0.9% 100 ML IVPB (21:23)
[2017-05-12] MEDS: QUETIAPINE 25 MG TAB GTB (21:23)
[2017-05-12] MEDS: DIVALPROEX SPRINKLE 125 MG CAP GTB (21:24)
[2017-05-13] MEDS: traMADol 50 MG TAB GTB ×5 (00:42→23:57)
[2017-05-13] MEDS: IPRATROPIUM (HFA) 12.9 GM INHALER INH ×4 (01:21→19:28)
[2017-05-13] MEDS: L ACIDOPHIL/B LACTIS/B LONGUM CAPSULE PO ×3 (06:13→22:03)
[2017-05-13] MEDS: LANSOPRAZOLE 30 MG CAP GTB ×2 (06:13→17:36)
[2017-05-13] MEDS: LEVOTHYROXINE 75 MCG TAB GTB (06:13)
[2017-05-13 07:30] LABS: CREATINE KINASE 80 IU/L (23-200)
[2017-05-13] MEDS: SILVER SULFADIAZINE 1% 50 GM CR TOP (09:00)
[2017-05-13] MEDS: NYSTATIN SUSP 5 ML CUP PO ×4 (09:00→22:03)
[2017-05-13] MEDS: FOLIC ACID 1 MG TAB GTB (09:00)
[2017-05-13] MEDS: MULTIVIT/CA CARB/B CMPLX/FA TAB GTB (09:00)
[2017-05-13] MEDS: COLLAGENASE 30 GM TUBE TOP (09:00)
[2017-05-13 10:04] LABS: ABNORMAL IP MESSAGE 1; HEMATOCRIT 27.3 % (37.0-47.0); HEMOGLOBIN 8.9 g/dl (12.0-16.0); MEAN CORPUSCULAR HEMOGLOBIN 31.3 pg (29.0-33.0); MEAN CORPUSCULAR HGB CONC 32.6 g/dl (32.0-37.0); MEAN CORPUSCULAR VOLUME 96.1 fl (82.0-101.0); MEAN PLATELET VOLUME 10.3 fl (7.4-10.4); NUCLEATED RED BLOOD CELLS% 0.4 /100WBC (0.0-0.0); PLATELET COUNT 219 10^3/UL (140-415); RED BLOOD COUNT 2.84 10^6/ul (4.20-5.40); RED CELL DISTRIBUTION WIDTH 19.7 % (11.5-14.5)
[2017-05-13 10:04] LABS: WHITE BLOOD COUNT 8.5 10^3/ul (4.8-10.8)
[2017-05-13 10:10] LABS: ADD MAN DIFF? YES; POSITIVE DIFF @See below
[2017-05-13 10:49] LABS: ANISOCYTOSIS 1+ (0-0); BAND NEUTROPHILS #M 1.7 10^3/ul (0.0-0.6); BAND NEUTROPHILS % (M) 20 % (0-4); EOSINOPHILS % (M) 7 % (0-7); ERYTHROBLAST% (NRBC) (M) 1 % (0-0); LYMPHOCYTES #M 2.7 10^3/ul (0.8-2.9); LYMPHOCYTES % (M) 32 % (15-51); METAMYELOCYTES #M 0.1 10^3/ul (0.0-0.0); METAMYELOCYTES %M 2 % (0-0); MICROCYTOSIS 1+ (0-0); MONOCYTE #M 0.5 10^3/ul (0.3-0.9); MONOCYTES % (M) 7 % (0-11); PLATELET ESTIMATE NORMAL; POIKILOCYTOSIS 1+ (0-0); POLYCHROMASIA 1+ (0-0); REACTIVE LYMPHOCYTES% (M) 1 % (0-0); SEG NEUT #M 2.8 10^3/ul (1.7-7.5); SEGMENTED NEUTROPHILS (M) % 31 % (39-77); SMUDGE%M 1 % (0-0)
[2017-05-13] MEDS: DEXTROSE 5%-0.45% NACL 1,000 ML IV (11:30)
[2017-05-13] MEDS: IOHEXOL 300MG/ML 150 ML BTL (12:06)
[2017-05-13] MEDS: EPOETIN 10000 UNITS/1 ML INJ (ESRD) SC (17:36)
[2017-05-13] MEDS: COLISTIMETHATE 75 MG in SOD CHLORIDE 0.9% 100 ML IVPB (18:47)
[2017-05-13] MEDS: ACETAMINOPHEN 650MG/20.3ML CUP GTB (22:03)
[2017-05-13] MEDS: DIVALPROEX SPRINKLE 125 MG CAP GTB (22:04)
[2017-05-13] MEDS: QUETIAPINE 25 MG TAB GTB (22:04)
[2017-05-14] MEDS: IPRATROPIUM (HFA) 12.9 GM INHALER INH ×4 (02:46→19:59)
[2017-05-14] MEDS: LEVOTHYROXINE 75 MCG TAB GTB (06:36)
[2017-05-14] MEDS: LANSOPRAZOLE 30 MG CAP GTB ×2 (06:36→18:21)
[2017-05-14] MEDS: traMADol 50 MG TAB GTB ×3 (06:36→18:00)
[2017-05-14] MEDS: L ACIDOPHIL/B LACTIS/B LONGUM CAPSULE PO ×3 (06:43→22:00)
[2017-05-14] MEDS: DEXTROSE 5%-0.45% NACL 1,000 ML IV ×2 (07:30→18:27)
[2017-05-14 08:25] LABS: LACTIC ACID 1.8 mmol/L (0.5-2.0)
[2017-05-14] MEDS: SILVER SULFADIAZINE 1% 50 GM CR TOP (09:00)
[2017-05-14] MEDS: NYSTATIN SUSP 5 ML CUP PO ×4 (09:00→20:40)
[2017-05-14] MEDS: MULTIVIT/CA CARB/B CMPLX/FA TAB GTB (09:00)
[2017-05-14] MEDS: FOLIC ACID 1 MG TAB GTB (09:00)
[2017-05-14] MEDS: COLLAGENASE 30 GM TUBE TOP (09:00)
[2017-05-14 09:28] LABS: ABNORMAL IP MESSAGE 1; HEMATOCRIT 29.3 % (37.0-47.0); HEMOGLOBIN 9.2 g/dl (12.0-16.0); MEAN CORPUSCULAR HGB CONC 31.4 g/dl (32.0-37.0); MEAN CORPUSCULAR VOLUME 98.7 fl (82.0-101.0); MEAN PLATELET VOLUME 11.3 fl (7.4-10.4); NUCLEATED RED BLOOD CELLS% 0.4 /100WBC (0.0-0.0); PLATELET COUNT 152 10^3/UL (140-415); RED BLOOD COUNT 2.97 10^6/ul (4.20-5.40); RED CELL DISTRIBUTION WIDTH 19.7 % (11.5-14.5)
[2017-05-14 09:38] LABS: ALBUMIN 2.3 g/dl (3.3-4.9); ANION GAP 15 (8-16); BLOOD UREA NITROGEN 42 mg/dl (7-20); CALCIUM 9.5 mg/dl (8.4-10.2); CARBON DIOXIDE 29 mmol/L (21-31); CHLORIDE 97 mmol/L (97-110); CREATININE 3.06 mg/dl (0.44-1.00); GLUCOSE 82 mg/dl (70-220); MAGNESIUM 2.6 mg/dl (1.7-2.5); POTASSIUM 4.6 mmol/L (3.5-5.1); SODIUM 136 mmol/L (135-144)
[2017-05-14 09:42] LABS: POSITIVE DIFF @See below
[2017-05-14 09:43] LABS: ADD MAN DIFF? YES
[2017-05-14] MEDS: ACETAMINOPHEN 650MG/20.3ML CUP GTB ×2 (10:32→20:40)
[2017-05-14] MEDS ORDERED: METOPROLOL 5 MG INJ IV (12:30)
[2017-05-14 12:52] LABS: ANISOCYTOSIS 2+ (0-0); BAND NEUTROPHILS % (M) 15 % (0-4); EOSINOPHILS % (M) 4 % (0-7); GIANT THROMBO% (M) 2 % (0-0); LYMPHOCYTES #M 1.6 10^3/ul (0.8-2.9); LYMPHOCYTES % (M) 23 % (15-51); METAMYELOCYTES %M 1 % (0-0); MICROCYTOSIS 1+ (0-0); MONOCYTE #M 0.5 10^3/ul (0.3-0.9); MONOCYTES % (M) 8 % (0-11); PLATELET ESTIMATE NORMAL; POLYCHROMASIA 1+ (0-0); REACTIVE LYMPHOCYTES #M 0.4 10^3/ul (0.0-0.0); REACTIVE LYMPHOCYTES% (M) 6 % (0-0); SEG NEUT #M 2.9 10^3/ul (1.7-7.5); SEGMENTED NEUTROPHILS (M) % 41 % (39-77); SMUDGE%M 1 % (0-0)
[2017-05-14] MEDS: COLISTIMETHATE 75 MG in SOD CHLORIDE 0.9% 100 ML IVPB (18:25)
[2017-05-14] MEDS: QUETIAPINE 25 MG TAB GTB (20:40)
[2017-05-14] MEDS: DIVALPROEX SPRINKLE 125 MG CAP GTB (20:40)
[2017-05-14] MEDS: DAPTOMYCIN 325 MG in SOD CHLORIDE 0.9% 100 ML IVPB (20:41)
[2017-05-14 21:15] LABS: LACTIC ACID 6.8 mmol/L (0.5-2.0)
[2017-05-14 23:53] LABS: AADO2 Arterial 418.4 mmHg (7.0-24.0); Allen Test ACCEPTAB; Arterial Base Excess 7.8 mmol/L (-3.0-3); Arterial HCO3 29.3 mmol/L (22.0-26.0); Arterial pCO2 31.5 mmhg (35-45); MODE VENT - AC; Site Left Radial
[2017-05-15] MEDS: ALBUMIN HUMAN 25% 100 ML IV ×3 (00:16→10:28)
[2017-05-15] MEDS: IPRATROPIUM (HFA) 12.9 GM INHALER INH ×4 (01:13→19:15)
[2017-05-15 02:27] LABS: AADO2 Arterial 317.1 mmHg (7.0-24.0); Allen Test ACCEPTAB; Arterial Base Excess 6.1 mmol/L (-3.0-3); Arterial Blood Gas Oxygen Sat 98.7 mmHG (95.0-100.0); Arterial COHb 0.3 % (0.0-3.0); Arterial Fraction of Oxyhgb 97.8 % (93.0-99.0); Arterial HCO3 29.6 mmol/L (22.0-26.0); Arterial MetHb 0.6 % (0.0-1.5); Arterial Total Hemglobin 7.5 g/dl (12.0-18.0); MODE VENT - AC; Site Left Radial
[2017-05-15] MEDS: SOD CHLORIDE 0.9% 500 ML IV (05:32)
[2017-05-15] MEDS: traMADol 50 MG TAB GTB ×4 (06:00→17:44)
[2017-05-15] MEDS: LEVOTHYROXINE 75 MCG TAB GTB (06:40)
[2017-05-15] MEDS: L ACIDOPHIL/B LACTIS/B LONGUM CAPSULE PO ×2 (06:40→14:00)
[2017-05-15] MEDS: LANSOPRAZOLE 30 MG CAP GTB (06:40)
[2017-05-15 07:03] LABS: ADD MAN DIFF? NO
[2017-05-15 07:08] LABS: WHITE BLOOD COUNT 8.3 10^3/ul (4.8-10.8)
[2017-05-15 07:08] LABS: ABNORMAL IP MESSAGE 1; BASOPHILS % 0.2 % (0.0-2.0); EOSINOPHILS # 0.2 10^3/ul (0.0-0.5); EOSINOPHILS % 2.4 % (0.0-7.0); HEMATOCRIT 21.5 % (37.0-47.0); LYMPHOCYTES # 2.2 10^3/ul (0.8-2.9); LYMPHOCYTES % 26.4 % (15.0-51.0); MEAN CORPUSCULAR HEMOGLOBIN 30.7 pg (29.0-33.0); MEAN CORPUSCULAR HGB CONC 31.2 g/dl (32.0-37.0); MEAN CORPUSCULAR VOLUME 98.6 fl (82.0-101.0); MEAN PLATELET VOLUME 11.7 fl (7.4-10.4); MONOCYTE # 0.7 10^3/ul (0.3-0.9); MONOCYTES % 8.2 % (0.0-11.0); NEUTROPHIL # 4.8 10^3/ul (1.6-7.5); NEUTROPHILS % 57.6 % (39.0-77.0); NUCLEATED RED BLOOD CELLS # 0.1 10^3/ul (0.0-0.0); NUCLEATED RED BLOOD CELLS% 0.6 /100WBC (0.0-0.0); RED BLOOD COUNT 2.18 10^6/ul (4.20-5.40); RED CELL DISTRIBUTION WIDTH 19.5 % (11.5-14.5)
[2017-05-15 07:34] LABS: PLATELET COUNT 103 10^3/UL (140-415); POSITIVE DIFF @See below
[2017-05-15 07:36] LABS: HEMOGLOBIN 6.7 g/dl (12.0-16.0)
[2017-05-15 08:11] LABS: ALBUMIN 2.7 g/dl (3.3-4.9); ANION GAP 19 (8-16); BLOOD UREA NITROGEN 41 mg/dl (7-20); CALCIUM 9.4 mg/dl (8.4-10.2); CARBON DIOXIDE 28 mmol/L (21-31); CHLORIDE 95 mmol/L (97-110); GLUCOSE 77 mg/dl (70-220); MAGNESIUM 2.5 mg/dl (1.7-2.5); POTASSIUM 4.2 mmol/L (3.5-5.1); SODIUM 138 mmol/L (135-144)
[2017-05-15] MEDS: COLLAGENASE 30 GM TUBE TOP (09:00)
[2017-05-15] MEDS: SILVER SULFADIAZINE 1% 50 GM CR TOP (09:00)
[2017-05-15 09:59] LABS: PATH REVIEW Y
[2017-05-15 10:02] LABS: ANISOCYTOSIS 1+ (0-0); BAND NEUTROPHILS #M 2.7 10^3/ul (0.0-0.6); BAND NEUTROPHILS % (M) 33 % (0-4); EOSINOPHILS % (M) 4 % (0-7); ERYTHROBLAST% (NRBC) (M) 1 % (0-0); LYMPHOCYTES #M 2.5 10^3/ul (0.8-2.9); LYMPHOCYTES % (M) 31 % (15-51); METAMYELOCYTES #M 0.4 10^3/ul (0.0-0.0); METAMYELOCYTES %M 6 % (0-0); MICROCYTOSIS 1+ (0-0); MONOCYTE #M 0.4 10^3/ul (0.3-0.9); MONOCYTES % (M) 6 % (0-11); PLATELET ESTIMATE DECREASED; POLYCHROMASIA 3+ (0-0); PROMYELOCYTES % (M) 1 % (0-0); REACTIVE LYMPHOCYTES% (M) 1 % (0-0); SEG NEUT #M 1.7 10^3/ul (1.7-7.5); SEGMENTED NEUTROPHILS (M) % 18 % (39-77); SMUDGE%M 5 % (0-0)
[2017-05-15] MEDS ORDERED: ALBUTEROL/IPRATROPIUM (NEB) 3 ML AMP HHN (10:30)
[2017-05-15] MEDS: FOLIC ACID 1 MG TAB GTB (10:32)
[2017-05-15] MEDS: NYSTATIN SUSP 5 ML CUP PO ×4 (10:32→20:36)
[2017-05-15] MEDS: MULTIVIT/CA CARB/B CMPLX/FA TAB GTB (10:32)
[2017-05-15] MEDS ORDERED: LIDOCAINE 1% (MPF) 5 ML VIAL SC (11:00)
[2017-05-15 12:16] LABS: LACTIC ACID 1.5 mmol/L (0.5-2.0)
[2017-05-15] MEDS: TRIMETHOPRIM/SULFAMETHOXAZOLE 15 ML in DEXTROSE 5% 500 ML IVPB (13:02)
[2017-05-15 13:12] LABS: IMMEDIATE SPIN CROSSMATCH 1 2
[2017-05-15] MEDS ORDERED: LIDOCAINE 1% (MDV) 20 ML INJ (13:57)
[2017-05-15] MEDS: PANTOPRAZOLE IV 80 MG in SOD CHLORIDE 0.9% 100 ML IV (15:27)
[2017-05-15] MEDS: LIDOCAINE 1% (MDV) 20 ML INJ SC (15:28)
[2017-05-15] MEDS: DIVALPROEX SPRINKLE 125 MG CAP GTB (20:36)
[2017-05-15] MEDS: QUETIAPINE 25 MG TAB GTB (20:37)
[2017-05-15] MEDS: COLISTIMETHATE 75 MG in SOD CHLORIDE 0.9% 100 ML IVPB (20:37)
[2017-05-16] MEDS: DEXTROSE 5%-0.45% NACL 1,000 ML IV ×2 (00:03→20:43)
[2017-05-16] MEDS: PANTOPRAZOLE IV 80 MG in SOD CHLORIDE 0.9% 100 ML IV ×3 (00:03→18:03)
[2017-05-16] MEDS: L ACIDOPHIL/B LACTIS/B LONGUM CAPSULE PO ×4 (00:03→23:34)
[2017-05-16] MEDS: traMADol 50 MG TAB GTB ×5 (00:07→23:34)
[2017-05-16] MEDS: NORepinephrine 8MG/250 ML (PMX 250 ML IV (00:54)
[2017-05-16] MEDS: IPRATROPIUM (HFA) 12.9 GM INHALER INH ×4 (01:05→19:27)
[2017-05-16 05:11] LABS: WHITE BLOOD COUNT 7.5 10^3/ul (4.8-10.8)
[2017-05-16 05:11] LABS: ABNORMAL IP MESSAGE 1; HEMOGLOBIN 8.1 g/dl (12.0-16.0); MEAN CORPUSCULAR HEMOGLOBIN 30.3 pg (29.0-33.0); MEAN CORPUSCULAR HGB CONC 32.4 g/dl (32.0-37.0); MEAN CORPUSCULAR VOLUME 93.6 fl (82.0-101.0); MEAN PLATELET VOLUME 11.6 fl (7.4-10.4); NUCLEATED RED BLOOD CELLS% 0.3 /100WBC (0.0-0.0); PLATELET COUNT 106 10^3/UL (140-415); RED BLOOD COUNT 2.67 10^6/ul (4.20-5.40); RED CELL DISTRIBUTION WIDTH 19.6 % (11.5-14.5)
[2017-05-16 05:29] LABS: ADD MAN DIFF? YES; POSITIVE DIFF @See below
[2017-05-16 05:41] LABS: ANION GAP 16 (8-16); BLOOD UREA NITROGEN 43 mg/dl (7-20); CALCIUM 8.8 mg/dl (8.4-10.2); CARBON DIOXIDE 32 mmol/L (21-31); CHLORIDE 95 mmol/L (97-110); CREATININE 3.57 mg/dl (0.44-1.00); GLUCOSE 78 mg/dl (70-220); POTASSIUM 3.6 mmol/L (3.5-5.1); SODIUM 139 mmol/L (135-144)
[2017-05-16 05:43] LABS: ALBUMIN 2.4 g/dl (3.3-4.9); ANION GAP 18 (8-16); BLOOD UREA NITROGEN 43 mg/dl (7-20); CALCIUM 8.9 mg/dl (8.4-10.2); CARBON DIOXIDE 30 mmol/L (21-31); CHLORIDE 94 mmol/L (97-110); GLUCOSE 77 mg/dl (70-220); MAGNESIUM 2.4 mg/dl (1.7-2.5); PHOSPHORUS 6.4 mg/dl (2.5-4.9); POTASSIUM 3.8 mmol/L (3.5-5.1); SODIUM 138 mmol/L (135-144)
[2017-05-16] MEDS: LEVOTHYROXINE 75 MCG TAB GTB (06:17)
[2017-05-16 08:12] LABS: ANISOCYTOSIS 2+ (0-0); BAND NEUTROPHILS % (M) 40 % (0-4); EOSINOPHILS % (M) 8 % (0-7); LYMPHOCYTES #M 1.4 10^3/ul (0.8-2.9); LYMPHOCYTES % (M) 19 % (15-51); METAMYELOCYTES %M 1 % (0-0); MICROCYTOSIS 2+ (0-0); MONOCYTE #M 0.3 10^3/ul (0.3-0.9); MONOCYTES % (M) 5 % (0-11); MYELOCYTES % (M) 1 % (0-0); PLATELET ESTIMATE DECREASED; POLYCHROMASIA 3+ (0-0); PROMYELOCYTES #M 0.1 10^3/ul (0-0); PROMYELOCYTES % (M) 2 % (0-0); SEGMENTED NEUTROPHILS (M) % 24 % (39-77); TOXIC GRANULATION 1+ (0-0)
[2017-05-16] MEDS: MULTIVIT/CA CARB/B CMPLX/FA TAB GTB (08:32)
[2017-05-16] MEDS: FOLIC ACID 1 MG TAB GTB (08:32)
[2017-05-16] MEDS: NYSTATIN SUSP 5 ML CUP PO ×4 (08:32→20:42)
[2017-05-16] MEDS: TRIMETHOPRIM/SULFAMETHOXAZOLE 15 ML in DEXTROSE 5% 500 ML IVPB (08:32)
[2017-05-16] MEDS: COLLAGENASE 30 GM TUBE TOP (16:42)
[2017-05-16] MEDS: EPOETIN 10000 UNITS/1 ML INJ (ESRD) SC (16:49)
[2017-05-16] MEDS: COLISTIMETHATE 75 MG in SOD CHLORIDE 0.9% 100 ML IVPB (18:00)
[2017-05-16] MEDS: DIVALPROEX SPRINKLE 125 MG CAP GTB (20:42)
[2017-05-16] MEDS: QUETIAPINE 25 MG TAB GTB (20:42)
[2017-05-16] MEDS: DAPTOMYCIN 325 MG in SOD CHLORIDE 0.9% 100 ML IVPB (20:43)
[2017-05-17] MEDS: IPRATROPIUM (HFA) 12.9 GM INHALER INH ×4 (01:30→20:24)
[2017-05-17] MEDS: PANTOPRAZOLE IV 80 MG in SOD CHLORIDE 0.9% 100 ML IV ×3 (05:30→23:57)
[2017-05-17 06:21] LABS: PROCALCITONIN 1.18 ng/mL (<0.10)
[2017-05-17 06:38] LABS: ABNORMAL IP MESSAGE 1; HEMATOCRIT 23.5 % (37.0-47.0); HEMOGLOBIN 7.7 g/dl (12.0-16.0); MEAN CORPUSCULAR HEMOGLOBIN 30.6 pg (29.0-33.0); MEAN CORPUSCULAR HGB CONC 32.8 g/dl (32.0-37.0); MEAN CORPUSCULAR VOLUME 93.3 fl (82.0-101.0); MEAN PLATELET VOLUME 11.5 fl (7.4-10.4); NUCLEATED RED BLOOD CELLS% 0.5 /100WBC (0.0-0.0); PLATELET COUNT 121 10^3/UL (140-415); RED BLOOD COUNT 2.52 10^6/ul (4.20-5.40); RED CELL DISTRIBUTION WIDTH 19.2 % (11.5-14.5)
[2017-05-17 06:38] LABS: WHITE BLOOD COUNT 8.7 10^3/ul (4.8-10.8)
[2017-05-17] MEDS: traMADol 50 MG TAB GTB ×4 (06:39→23:59)
[2017-05-17] MEDS: L ACIDOPHIL/B LACTIS/B LONGUM CAPSULE PO ×3 (06:40→22:01)
[2017-05-17] MEDS: LEVOTHYROXINE 75 MCG TAB GTB (06:40)
[2017-05-17 06:43] LABS: POSITIVE DIFF @See below
[2017-05-17 06:44] LABS: ADD MAN DIFF? YES
[2017-05-17] MEDS: NORepinephrine 8MG/250 ML (PMX 250 ML IV (06:48)
[2017-05-17 07:49] LABS: ANION GAP 20 (8-16); BLOOD UREA NITROGEN 43 mg/dl (7-20); CALCIUM 8.1 mg/dl (8.4-10.2); CARBON DIOXIDE 27 mmol/L (21-31); CHLORIDE 94 mmol/L (97-110); CREATININE 3.74 mg/dl (0.44-1.00); GLUCOSE 73 mg/dl (70-220); MAGNESIUM 2.3 mg/dl (1.7-2.5); PHOSPHORUS 6.2 mg/dl (2.5-4.9); POTASSIUM 3.8 mmol/L (3.5-5.1); SODIUM 137 mmol/L (135-144)
[2017-05-17 07:57] LABS: ANISOCYTOSIS 2+ (0-0); BAND NEUTROPHILS #M 0.3 10^3/ul (0.0-0.6); BAND NEUTROPHILS % (M) 4 % (0-4); BURR CELLS 1+ (0-0); EOSINOPHILS % (M) 4 % (0-7); LYMPHOCYTES #M 1.4 10^3/ul (0.8-2.9); LYMPHOCYTES % (M) 17 % (15-51); MICROCYTOSIS 1+ (0-0); MONOCYTES % (M) 1 % (0-11); MYELOCYTES #M 0.1 10^3/ul (0.0-0.0); MYELOCYTES % (M) 2 % (0-0); PLATELET ESTIMATE DECREASED; POIKILOCYTOSIS 1+ (0-0); POLYCHROMASIA 1+ (0-0); PROMYELOCYTES % (M) 1 % (0-0); REACTIVE LYMPHOCYTES% (M) 1 % (0-0); SEG NEUT #M 6.1 10^3/ul (1.7-7.5); SEGMENTED NEUTROPHILS (M) % 70 % (39-77); SMUDGE%M 5 % (0-0)
[2017-05-17] MEDS: FOLIC ACID 1 MG TAB GTB (09:19)
[2017-05-17] MEDS: NYSTATIN SUSP 5 ML CUP PO ×4 (09:19→20:55)
[2017-05-17] MEDS: MULTIVIT/CA CARB/B CMPLX/FA TAB GTB (09:19)
[2017-05-17] MEDS: SILVER SULFADIAZINE 1% 25 GM CR TOP (09:20)
[2017-05-17] MEDS: COLLAGENASE 30 GM TUBE TOP (09:20)
[2017-05-17] MEDS: TRIMETHOPRIM/SULFAMETHOXAZOLE 15 ML in DEXTROSE 5% 500 ML IVPB (09:49)
[2017-05-17] MEDS: DEXTROSE 5%-0.45% NACL 1,000 ML IV (14:34)
[2017-05-17] MEDS: MIDODRINE 5 MG TAB GTB (17:49)
[2017-05-17] MEDS: COLISTIMETHATE 75 MG in SOD CHLORIDE 0.9% 100 ML IVPB (17:50)
[2017-05-17] MEDS: DIVALPROEX SPRINKLE 125 MG CAP GTB (20:55)
[2017-05-17] MEDS: QUETIAPINE 25 MG TAB GTB (21:07)
[2017-05-18] MEDS: IPRATROPIUM (HFA) 12.9 GM INHALER INH ×4 (01:45→19:11)
[2017-05-18] MEDS: traMADol 50 MG TAB GTB ×3 (05:52→17:18)
[2017-05-18] MEDS: L ACIDOPHIL/B LACTIS/B LONGUM CAPSULE PO ×3 (05:52→20:31)
[2017-05-18] MEDS: NORepinephrine 8MG/250 ML (PMX 250 ML IV (05:55)
[2017-05-18] MEDS: LEVOTHYROXINE 75 MCG TAB GTB (06:17)
[2017-05-18 07:05] LABS: WHITE BLOOD COUNT 7.5 10^3/ul (4.8-10.8)
[2017-05-18 07:05] LABS: ABNORMAL IP MESSAGE 1; HEMATOCRIT 22.9 % (37.0-47.0); HEMOGLOBIN 7.6 g/dl (12.0-16.0); MEAN CORPUSCULAR HEMOGLOBIN 30.6 pg (29.0-33.0); MEAN CORPUSCULAR HGB CONC 33.2 g/dl (32.0-37.0); MEAN CORPUSCULAR VOLUME 92.3 fl (82.0-101.0); MEAN PLATELET VOLUME 11.1 fl (7.4-10.4); NUCLEATED RED BLOOD CELLS% 0.3 /100WBC (0.0-0.0); PLATELET COUNT 111 10^3/UL (140-415); RED BLOOD COUNT 2.48 10^6/ul (4.20-5.40); RED CELL DISTRIBUTION WIDTH 18.7 % (11.5-14.5)
[2017-05-18 07:14] LABS: ANION GAP 18 (8-16); BLOOD UREA NITROGEN 43 mg/dl (7-20); CALCIUM 8.2 mg/dl (8.4-10.2); CARBON DIOXIDE 27 mmol/L (21-31); CHLORIDE 92 mmol/L (97-110); CREATININE 4.11 mg/dl (0.44-1.00); GLUCOSE 63 mg/dl (70-220); MAGNESIUM 2.1 mg/dl (1.7-2.5); PHOSPHORUS 6.3 mg/dl (2.5-4.9); POTASSIUM 3.8 mmol/L (3.5-5.1); SODIUM 133 mmol/L (135-144)
[2017-05-18 07:28] LABS: ADD MAN DIFF? YES; POSITIVE DIFF @See below
[2017-05-18] MEDS: MIDODRINE 5 MG TAB GTB ×2 (09:00→16:57)
[2017-05-18] MEDS: COLLAGENASE 30 GM TUBE TOP (09:00)
[2017-05-18 09:02] LABS: ANISOCYTOSIS 2+ (0-0); BAND NEUTROPHILS % (M) 14 % (0-4); EOSINOPHILS % (M) 4 % (0-7); LYMPHOCYTES #M 1.8 10^3/ul (0.8-2.9); LYMPHOCYTES % (M) 25 % (15-51); METAMYELOCYTES #M 0.2 10^3/ul (0.0-0.0); METAMYELOCYTES %M 3 % (0-0); MICROCYTOSIS 2+ (0-0); MONOCYTE #M 0.2 10^3/ul (0.3-0.9); MONOCYTES % (M) 3 % (0-11); MYELOCYTES % (M) 1 % (0-0); PLATELET ESTIMATE DECREASED; POIKILOCYTOSIS 1+ (0-0); PROMYELOCYTES % (M) 1 % (0-0); REACTIVE LYMPHOCYTES #M 0.2 10^3/ul (0.0-0.0); REACTIVE LYMPHOCYTES% (M) 3 % (0-0); SEG NEUT #M 3.5 10^3/ul (1.7-7.5); SEGMENTED NEUTROPHILS (M) % 46 % (39-77); SMUDGE%M 3 % (0-0)
[2017-05-18] MEDS: FOLIC ACID 1 MG TAB GTB (09:56)
[2017-05-18] MEDS: MULTIVIT/CA CARB/B CMPLX/FA TAB GTB (09:56)
[2017-05-18] MEDS: NYSTATIN SUSP 5 ML CUP PO ×4 (09:56→20:31)
[2017-05-18] MEDS: PANTOPRAZOLE IV 80 MG in SOD CHLORIDE 0.9% 100 ML IV (09:56)
[2017-05-18] MEDS: TRIMETHOPRIM/SULFAMETHOXAZOLE 15 ML in DEXTROSE 5% 500 ML IVPB (10:04)
[2017-05-18] MEDS: SILVER SULFADIAZINE 1% 25 GM CR TOP (10:04)
[2017-05-18] MEDS: DEXTROSE 5%-0.45% NACL 1,000 ML IV ×2 (12:20→19:10)
[2017-05-18] MEDS: EPOETIN 10000 UNITS/1 ML INJ (ESRD) SC (16:58)
[2017-05-18] MEDS: COLISTIMETHATE 75 MG in SOD CHLORIDE 0.9% 100 ML IVPB (17:15)
[2017-05-18] MEDS: PANTOPRAZOLE 40 MG INJ IV (17:18)
[2017-05-18] MEDS: DAPTOMYCIN 325 MG in SOD CHLORIDE 0.9% 100 ML IVPB (20:31)
[2017-05-18] MEDS: QUETIAPINE 25 MG TAB GTB (20:31)
[2017-05-18] MEDS: DIVALPROEX SPRINKLE 125 MG CAP GTB (20:32)
[2017-05-19] MEDS: traMADol 50 MG TAB GTB ×4 (00:07→17:14)
[2017-05-19] MEDS: IPRATROPIUM (HFA) 12.9 GM INHALER INH ×4 (03:07→19:19)
[2017-05-19 05:27] LABS: WHITE BLOOD COUNT 9.4 10^3/ul (4.8-10.8)
[2017-05-19 05:27] LABS: ABNORMAL IP MESSAGE 1; HEMATOCRIT 24.7 % (37.0-47.0); MEAN CORPUSCULAR HEMOGLOBIN 29.9 pg (29.0-33.0); MEAN CORPUSCULAR HGB CONC 32.4 g/dl (32.0-37.0); MEAN CORPUSCULAR VOLUME 92.2 fl (82.0-101.0); MEAN PLATELET VOLUME 10.9 fl (7.4-10.4); PLATELET COUNT 120 10^3/UL (140-415); RED BLOOD COUNT 2.68 10^6/ul (4.20-5.40); RED CELL DISTRIBUTION WIDTH 18.6 % (11.5-14.5)
[2017-05-19 05:40] LABS: ADD MAN DIFF? YES; POSITIVE DIFF @See below
[2017-05-19 06:09] LABS: ANION GAP 18 (8-16); BLOOD UREA NITROGEN 44 mg/dl (7-20); CALCIUM 8.3 mg/dl (8.4-10.2); CARBON DIOXIDE 24 mmol/L (21-31); CHLORIDE 92 mmol/L (97-110); CREATININE 4.12 mg/dl (0.44-1.00); GLUCOSE 64 mg/dl (70-220); MAGNESIUM 2.1 mg/dl (1.7-2.5); PHOSPHORUS 5.9 mg/dl (2.5-4.9); SODIUM 130 mmol/L (135-144)
[2017-05-19 06:10] LABS: ALANINE AMINOTRANSFERASE 34 IU/L (13-69); ALBUMIN 2.2 g/dl (3.3-4.9); ALBUMIN/GLOBULIN RATIO 0.95; ALKALINE PHOSPHATASE 105 IU/L (42-121); ANION GAP 18 (8-16); ASPARTATE AMINO TRANSFERASE 35 IU/L (15-46); BLOOD UREA NITROGEN 44 mg/dl (7-20); CALCIUM 8.4 mg/dl (8.4-10.2); CARBON DIOXIDE 25 mmol/L (21-31); CHLORIDE 92 mmol/L (97-110); GLUCOSE 65 mg/dl (70-220); SODIUM 131 mmol/L (135-144); TOTAL PROTEIN 4.5 g/dl (6.1-8.1)
[2017-05-19] MEDS: PANTOPRAZOLE 40 MG INJ IV ×2 (06:27→17:13)
[2017-05-19] MEDS: L ACIDOPHIL/B LACTIS/B LONGUM CAPSULE PO ×3 (06:28→21:12)
[2017-05-19] MEDS: LEVOTHYROXINE 75 MCG TAB GTB (06:28)
[2017-05-19] MEDS: SOD CHLORIDE 0.9% 1,000 ML IV (08:30)
[2017-05-19] MEDS ORDERED: HEPARIN 1000 UNITS/ML 10 ML INJ (08:31)
[2017-05-19] MEDS: NYSTATIN SUSP 5 ML CUP PO ×4 (09:22→21:00)
[2017-05-19] MEDS: FOLIC ACID 1 MG TAB GTB (09:22)
[2017-05-19] MEDS: MULTIVIT/CA CARB/B CMPLX/FA TAB GTB (09:23)
[2017-05-19] MEDS: TRIMETHOPRIM/SULFAMETHOXAZOLE 15 ML in DEXTROSE 5% 500 ML IVPB (09:23)
[2017-05-19] MEDS: COLLAGENASE 30 GM TUBE TOP (09:23)
[2017-05-19] MEDS: SILVER SULFADIAZINE 1% 25 GM CR TOP (09:24)
[2017-05-19 10:34] LABS: ANISOCYTOSIS 1+ (0-0); BAND NEUTROPHILS #M 2.5 10^3/ul (0.0-0.6); BAND NEUTROPHILS % (M) 27 % (0-4); BASOPHIL #M 0.1 10^3/ul (0.0-0.0); BASOPHILS % (M) 2 % (0-2); BURR CELLS 2+ (0-0); EOSINOPHILS % (M) 6 % (0-7); LYMPHOCYTES #M 2.3 10^3/ul (0.8-2.9); LYMPHOCYTES % (M) 25 % (15-51); METAMYELOCYTES #M 0.2 10^3/ul (0.0-0.0); METAMYELOCYTES %M 3 % (0-0); MICROCYTOSIS 1+ (0-0); MONOCYTES % (M) 1 % (0-11); MYELOCYTES % (M) 1 % (0-0); PLATELET ESTIMATE DECREASED; POIKILOCYTOSIS 3+ (0-0); POLYCHROMASIA 1+ (0-0); REACTIVE LYMPHOCYTES #M 0.7 10^3/ul (0.0-0.0); REACTIVE LYMPHOCYTES% (M) 8 % (0-0); SEG NEUT #M 2.8 10^3/ul (1.7-7.5); SEGMENTED NEUTROPHILS (M) % 27 % (39-77); SMUDGE%M 7 % (0-0)
[2017-05-19] MEDS: MIDODRINE 5 MG TAB GTB ×3 (11:14→21:00)
[2017-05-19] MEDS: METOCLOPRAMIDE 10 MG INJ IV ×2 (12:23→17:13)
[2017-05-19 13:27] LABS: PROCALCITONIN 1.37 ng/mL (<0.10)
[2017-05-19] MEDS ORDERED: ALBUMIN HUMAN 25% 100 ML (15:29)
[2017-05-19] MEDS: COLISTIMETHATE 75 MG in SOD CHLORIDE 0.9% 100 ML IVPB (17:14)
[2017-05-19] MEDS: DIVALPROEX SPRINKLE 125 MG CAP GTB (21:00)
[2017-05-19] MEDS: QUETIAPINE 25 MG TAB GTB (21:12)
[2017-05-20] MEDS: traMADol 50 MG TAB GTB ×4 (00:58→17:27)
[2017-05-20] MEDS: METOCLOPRAMIDE 10 MG INJ IV ×4 (00:59→17:12)
[2017-05-20] MEDS: DEXTROSE 5%-0.9% NACL 1,000 ML IV (01:00)
[2017-05-20] MEDS: ALBUMIN HUMAN 25% 100 ML IV (01:00)
[2017-05-20] MEDS: IPRATROPIUM (HFA) 12.9 GM INHALER INH ×4 (01:29→19:22)
[2017-05-20] MEDS ORDERED: DEXTROSE 50% 50 ML SYRINGE (05:17)
[2017-05-20] MEDS: L ACIDOPHIL/B LACTIS/B LONGUM CAPSULE PO ×3 (05:20→20:58)
[2017-05-20] MEDS: PANTOPRAZOLE 40 MG INJ IV ×2 (05:20→17:12)
[2017-05-20] MEDS: LEVOTHYROXINE 75 MCG TAB GTB (05:22)
[2017-05-20] MEDS: DEXTROSE 50% 50 ML SYRINGE IV (05:28)
[2017-05-20] MEDS: MULTIVIT/CA CARB/B CMPLX/FA TAB GTB (08:49)
[2017-05-20] MEDS: NYSTATIN SUSP 5 ML CUP PO ×4 (08:49→20:56)
[2017-05-20] MEDS: TRIMETHOPRIM/SULFAMETHOXAZOLE 15 ML in DEXTROSE 5% 500 ML IVPB (08:50)
[2017-05-20] MEDS: MIDODRINE 5 MG TAB GTB ×3 (08:50→20:56)
[2017-05-20] MEDS: FOLIC ACID 1 MG TAB GTB (08:50)
[2017-05-20] MEDS: COLLAGENASE 30 GM TUBE TOP (08:56)
[2017-05-20 09:05] LABS: ABNORMAL IP MESSAGE 1; HEMATOCRIT 22.3 % (37.0-47.0); HEMOGLOBIN 7.4 g/dl (12.0-16.0); MEAN CORPUSCULAR HEMOGLOBIN 31.2 pg (29.0-33.0); MEAN CORPUSCULAR HGB CONC 33.2 g/dl (32.0-37.0); MEAN CORPUSCULAR VOLUME 94.1 fl (82.0-101.0); MEAN PLATELET VOLUME 10.7 fl (7.4-10.4); NUCLEATED RED BLOOD CELLS% 0.3 /100WBC (0.0-0.0); PLATELET COUNT 104 10^3/UL (140-415); RED BLOOD COUNT 2.37 10^6/ul (4.20-5.40); RED CELL DISTRIBUTION WIDTH 18.6 % (11.5-14.5)
[2017-05-20 09:05] LABS: WHITE BLOOD COUNT 6.8 10^3/ul (4.8-10.8)
[2017-05-20 09:07] LABS: ADD MAN DIFF? YES; POSITIVE DIFF @See below
[2017-05-20 09:09] LABS: ANION GAP 15 (8-16); BLOOD UREA NITROGEN 28 mg/dl (7-20); CALCIUM 8.9 mg/dl (8.4-10.2); CARBON DIOXIDE 27 mmol/L (21-31); CHLORIDE 94 mmol/L (97-110); CREATININE 3.05 mg/dl (0.44-1.00); GLUCOSE 71 mg/dl (70-220); MAGNESIUM 1.9 mg/dl (1.7-2.5); PHOSPHORUS 4.6 mg/dl (2.5-4.9); POTASSIUM 3.4 mmol/L (3.5-5.1); SODIUM 133 mmol/L (135-144)
[2017-05-20 09:30] LABS: CREATINE KINASE 36 IU/L (23-200)
[2017-05-20 11:07] LABS: ANISOCYTOSIS 1+ (0-0); BAND NEUTROPHILS #M 1.7 10^3/ul (0.0-0.6); BAND NEUTROPHILS % (M) 26 % (0-4); BASOPHILS % (M) 1 % (0-2); EOSINOPHILS % (M) 5 % (0-7); ERYTHROBLAST% (NRBC) (M) 2 % (0-0); LYMPHOCYTES #M 2.3 10^3/ul (0.8-2.9); LYMPHOCYTES % (M) 34 % (15-51); METAMYELOCYTES #M 0.2 10^3/ul (0.0-0.0); METAMYELOCYTES %M 3 % (0-0); MICROCYTOSIS 1+ (0-0); MONOCYTE #M 0.3 10^3/ul (0.3-0.9); MONOCYTES % (M) 5 % (0-11); MYELOCYTES #M 0.1 10^3/ul (0.0-0.0); MYELOCYTES % (M) 2 % (0-0); PLATELET ESTIMATE DECREASED; PROMYELOCYTES #M 0.2 10^3/ul (0-0); PROMYELOCYTES % (M) 4 % (0-0); SEG NEUT #M 1.5 10^3/ul (1.7-7.5); SEGMENTED NEUTROPHILS (M) % 20 % (39-77); SMUDGE%M 8 % (0-0)
[2017-05-20] MEDS: SILVER SULFADIAZINE 1% 25 GM CR TOP (12:44)
[2017-05-20] MEDS: HYDROCORTISONE 100 MG INJ IV ×2 (13:48→20:56)
[2017-05-20] MEDS: COLISTIMETHATE 75 MG in SOD CHLORIDE 0.9% 100 ML IVPB (17:12)
[2017-05-20] MEDS: EPOETIN 10000 UNITS/1 ML INJ (ESRD) SC (17:37)
[2017-05-20] MEDS: DIVALPROEX SPRINKLE 125 MG CAP GTB (20:56)
[2017-05-20] MEDS: POTASSIUM CHLORIDE 20 MEQ POWDER FOR ORAL SOLN GTB (20:56)
[2017-05-20] MEDS: QUETIAPINE 25 MG TAB GTB (20:56)
[2017-05-20] MEDS: DAPTOMYCIN 325 MG in SOD CHLORIDE 0.9% 100 ML IVPB (20:56)
[2017-05-21] MEDS: traMADol 50 MG TAB GTB ×4 (00:22→18:05)
[2017-05-21] MEDS: METOCLOPRAMIDE 10 MG INJ IV ×4 (00:22→18:04)
[2017-05-21] MEDS: DEXTROSE 5%-0.9% NACL 1,000 ML IV ×2 (00:23→12:39)
[2017-05-21] MEDS: IPRATROPIUM (HFA) 12.9 GM INHALER INH ×4 (01:10→19:50)
[2017-05-21] MEDS: LEVOTHYROXINE 75 MCG TAB GTB (05:15)
[2017-05-21] MEDS: HYDROCORTISONE 100 MG INJ IV ×3 (05:15→21:10)
[2017-05-21] MEDS: L ACIDOPHIL/B LACTIS/B LONGUM CAPSULE PO ×3 (05:15→21:09)
[2017-05-21] MEDS: PANTOPRAZOLE 40 MG INJ IV ×2 (05:15→18:04)
[2017-05-21 05:34] LABS: ABNORMAL IP MESSAGE 1; HEMATOCRIT 24.9 % (37.0-47.0); HEMOGLOBIN 7.9 g/dl (12.0-16.0); MEAN CORPUSCULAR HEMOGLOBIN 29.6 pg (29.0-33.0); MEAN CORPUSCULAR HGB CONC 31.7 g/dl (32.0-37.0); MEAN CORPUSCULAR VOLUME 93.3 fl (82.0-101.0); MEAN PLATELET VOLUME 10.9 fl (7.4-10.4); PLATELET COUNT 93 10^3/UL (140-415); RED BLOOD COUNT 2.67 10^6/ul (4.20-5.40); RED CELL DISTRIBUTION WIDTH 18.5 % (11.5-14.5)
[2017-05-21 05:34] LABS: WHITE BLOOD COUNT 9.8 10^3/ul (4.8-10.8)
[2017-05-21 05:49] LABS: ADD MAN DIFF? YES; POSITIVE DIFF @See below
[2017-05-21 06:16] LABS: ANION GAP 17 (8-16); BLOOD UREA NITROGEN 29 mg/dl (7-20); CARBON DIOXIDE 25 mmol/L (21-31); CHLORIDE 95 mmol/L (97-110); CREATININE 3.35 mg/dl (0.44-1.00); GLUCOSE 100 mg/dl (70-220); PHOSPHORUS 5.4 mg/dl (2.5-4.9); POTASSIUM 4.7 mmol/L (3.5-5.1); SODIUM 132 mmol/L (135-144)
[2017-05-21 07:08] LABS: ANISOCYTOSIS 2+ (0-0); BAND NEUTROPHILS #M 2.9 10^3/ul (0.0-0.6); BAND NEUTROPHILS % (M) 30 % (0-4); BURR CELLS 2+ (0-0); EOSINOPHILS % (M) 1 % (0-7); LYMPHOCYTES #M 2.8 10^3/ul (0.8-2.9); LYMPHOCYTES % (M) 29 % (15-51); METAMYELOCYTES #M 0.1 10^3/ul (0.0-0.0); METAMYELOCYTES %M 2 % (0-0); MICROCYTOSIS 1+ (0-0); MYELOCYTES #M 0.3 10^3/ul (0.0-0.0); MYELOCYTES % (M) 4 % (0-0); PLATELET ESTIMATE DECREASED; POIKILOCYTOSIS 3+ (0-0); POLYCHROMASIA 3+ (0-0); PROMYELOCYTES #M 0.2 10^3/ul (0-0); PROMYELOCYTES % (M) 3 % (0-0); SEG NEUT #M 3.2 10^3/ul (1.7-7.5); SEGMENTED NEUTROPHILS (M) % 30 % (39-77)
[2017-05-21] MEDS: FOLIC ACID 1 MG TAB GTB (09:48)
[2017-05-21] MEDS: TRIMETHOPRIM/SULFAMETHOXAZOLE 15 ML in DEXTROSE 5% 500 ML IVPB (09:48)
[2017-05-21] MEDS: NYSTATIN SUSP 5 ML CUP PO ×4 (09:48→21:09)
[2017-05-21] MEDS: SILVER SULFADIAZINE 1% 25 GM CR TOP (09:49)
[2017-05-21] MEDS: COLLAGENASE 30 GM TUBE TOP (09:49)
[2017-05-21] MEDS: MULTIVIT/CA CARB/B CMPLX/FA TAB GTB (09:49)
[2017-05-21] MEDS: MIDODRINE 5 MG TAB GTB ×3 (09:49→21:09)
[2017-05-21] MEDS: ALBUMIN HUMAN 25% 100 ML IV (13:31)
[2017-05-21] MEDS: COLISTIMETHATE 75 MG in SOD CHLORIDE 0.9% 100 ML IVPB (19:40)
[2017-05-21] MEDS: QUETIAPINE 25 MG TAB GTB (21:00)
[2017-05-21] MEDS: DIVALPROEX SPRINKLE 125 MG CAP GTB (21:09)
[2017-05-22] MEDS: METOCLOPRAMIDE 10 MG INJ IV ×4 (01:16→17:44)
[2017-05-22] MEDS: traMADol 50 MG TAB GTB ×4 (01:16→17:44)
[2017-05-22] MEDS: IPRATROPIUM (HFA) 12.9 GM INHALER INH ×4 (01:20→19:46)
[2017-05-22] MEDS: HYDROCORTISONE 100 MG INJ IV ×3 (05:50→21:19)
[2017-05-22] MEDS: LEVOTHYROXINE 75 MCG TAB GTB (05:50)
[2017-05-22] MEDS: PANTOPRAZOLE 40 MG INJ IV ×2 (05:50→17:44)
[2017-05-22] MEDS: L ACIDOPHIL/B LACTIS/B LONGUM CAPSULE PO ×3 (05:52→21:19)
[2017-05-22 08:02] LABS: WHITE BLOOD COUNT 6.6 10^3/ul (4.8-10.8)
[2017-05-22 08:02] LABS: ABNORMAL IP MESSAGE 1; HEMATOCRIT 21.5 % (37.0-47.0); MEAN CORPUSCULAR HEMOGLOBIN 29.8 pg (29.0-33.0); MEAN CORPUSCULAR HGB CONC 31.6 g/dl (32.0-37.0); MEAN CORPUSCULAR VOLUME 94.3 fl (82.0-101.0); MEAN PLATELET VOLUME 11.4 fl (7.4-10.4); PLATELET COUNT 70 10^3/UL (140-415); RED BLOOD COUNT 2.28 10^6/ul (4.20-5.40); RED CELL DISTRIBUTION WIDTH 18.6 % (11.5-14.5)
[2017-05-22 08:07] LABS: POSITIVE DIFF @See below
[2017-05-22 08:10] LABS: ADD MAN DIFF? YES
[2017-05-22 08:19] LABS: ANION GAP 18 (8-16); BLOOD UREA NITROGEN 23 mg/dl (7-20); CALCIUM 8.5 mg/dl (8.4-10.2); CARBON DIOXIDE 25 mmol/L (21-31); CHLORIDE 94 mmol/L (97-110); CREATININE 2.28 mg/dl (0.44-1.00); GLUCOSE 137 mg/dl (70-220); POTASSIUM 3.8 mmol/L (3.5-5.1); SODIUM 133 mmol/L (135-144)
[2017-05-22] MEDS: NYSTATIN SUSP 5 ML CUP PO ×4 (09:04→21:19)
[2017-05-22] MEDS: SILVER SULFADIAZINE 1% 25 GM CR TOP (09:05)
[2017-05-22] MEDS: MIDODRINE 5 MG TAB GTB ×3 (09:05→21:19)
[2017-05-22] MEDS: FOLIC ACID 1 MG TAB GTB (09:05)
[2017-05-22] MEDS: MULTIVIT/CA CARB/B CMPLX/FA TAB GTB (09:05)
[2017-05-22] MEDS: COLLAGENASE 30 GM TUBE TOP (09:05)
[2017-05-22] MEDS: TRIMETHOPRIM/SULFAMETHOXAZOLE 15 ML in DEXTROSE 5% 500 ML IVPB (09:45)
[2017-05-22 09:56] LABS: ANISOCYTOSIS 1+ (0-0); BAND NEUTROPHILS #M 0.7 10^3/ul (0.0-0.6); BAND NEUTROPHILS % (M) 11 % (0-4); BURR CELLS 1+ (0-0); GIANT THROMBO% (M) 2 % (0-0); LYMPHOCYTES #M 1.1 10^3/ul (0.8-2.9); LYMPHOCYTES % (M) 17 % (15-51); MONOCYTE #M 0.1 10^3/ul (0.3-0.9); MONOCYTES % (M) 3 % (0-11); MYELOCYTES #M 0.2 10^3/ul (0.0-0.0); MYELOCYTES % (M) 4 % (0-0); PLATELET ESTIMATE DECREASED; POIKILOCYTOSIS 1+ (0-0); PROMYELOCYTES % (M) 1 % (0-0); SEG NEUT #M 4.3 10^3/ul (1.7-7.5); SEGMENTED NEUTROPHILS (M) % 64 % (39-77); SMUDGE%M 14 % (0-0)
[2017-05-22 10:01] LABS: HEMOGLOBIN 6.8 g/dl (12.0-16.0)
[2017-05-22] MEDS: COLISTIMETHATE 75 MG in SOD CHLORIDE 0.9% 100 ML IVPB (17:44)
[2017-05-22] MEDS: QUETIAPINE 25 MG TAB GTB (21:19)
[2017-05-22] MEDS: DIVALPROEX SPRINKLE 125 MG CAP GTB (22:55)
[2017-05-22] MEDS: DAPTOMYCIN 325 MG in SOD CHLORIDE 0.9% 100 ML IVPB (22:55)
[2017-05-23] MEDS: DEXTROSE 5%-0.9% NACL 1,000 ML IV (01:02)
[2017-05-23] MEDS: traMADol 50 MG TAB GTB ×4 (01:02→17:36)
[2017-05-23] MEDS: METOCLOPRAMIDE 10 MG INJ IV ×4 (01:03→17:37)
[2017-05-23] MEDS: IPRATROPIUM (HFA) 12.9 GM INHALER INH ×4 (01:06→19:42)
[2017-05-23] MEDS: PANTOPRAZOLE 40 MG INJ IV ×2 (05:04→17:35)
[2017-05-23] MEDS: L ACIDOPHIL/B LACTIS/B LONGUM CAPSULE PO ×3 (05:05→20:54)
[2017-05-23] MEDS: HYDROCORTISONE 100 MG INJ IV ×3 (05:25→20:56)
[2017-05-23] MEDS: LEVOTHYROXINE 75 MCG TAB GTB (06:08)
[2017-05-23] MEDS: SILVER SULFADIAZINE 1% 25 GM CR TOP (08:41)
[2017-05-23] MEDS: FOLIC ACID 1 MG TAB GTB (08:42)
[2017-05-23] MEDS: MULTIVIT/CA CARB/B CMPLX/FA TAB GTB (08:42)
[2017-05-23] MEDS: COLLAGENASE 30 GM TUBE TOP (08:42)
[2017-05-23] MEDS: MIDODRINE 5 MG TAB GTB ×3 (08:42→20:55)
[2017-05-23] MEDS: NYSTATIN SUSP 5 ML CUP PO ×4 (08:43→20:55)
[2017-05-23] MEDS: TRIMETHOPRIM/SULFAMETHOXAZOLE 15 ML in DEXTROSE 5% 500 ML IVPB (09:12)
[2017-05-23 09:45] LABS: ABNORMAL IP MESSAGE 1; HEMATOCRIT 17.8 % (37.0-47.0); MEAN CORPUSCULAR HEMOGLOBIN 29.6 pg (29.0-33.0); MEAN CORPUSCULAR HGB CONC 31.5 g/dl (32.0-37.0); MEAN CORPUSCULAR VOLUME 94.2 fl (82.0-101.0); MEAN PLATELET VOLUME 11.1 fl (7.4-10.4); PLATELET COUNT 55 10^3/UL (140-415); RED BLOOD COUNT 1.89 10^6/ul (4.20-5.40); RED CELL DISTRIBUTION WIDTH 18.3 % (11.5-14.5)
[2017-05-23 09:45] LABS: WHITE BLOOD COUNT 6.6 10^3/ul (4.8-10.8)
[2017-05-23 09:52] LABS: POSITIVE DIFF @See below
[2017-05-23 09:56] LABS: ADD MAN DIFF? YES; HEMOGLOBIN 5.6 g/dl (12.0-16.0)
[2017-05-23 10:32] LABS: ANION GAP 17 (8-16); BLOOD UREA NITROGEN 29 mg/dl (7-20); CALCIUM 8.2 mg/dl (8.4-10.2); CARBON DIOXIDE 21 mmol/L (21-31); CHLORIDE 93 mmol/L (97-110); CREATININE 2.51 mg/dl (0.44-1.00); GLUCOSE 107 mg/dl (70-220); POTASSIUM 4.2 mmol/L (3.5-5.1); SODIUM 127 mmol/L (135-144)
[2017-05-23 10:34] LABS: ANISOCYTOSIS 1+ (0-0); BAND NEUTROPHILS #M 0.5 10^3/ul (0.0-0.6); BAND NEUTROPHILS % (M) 8 % (0-4); BURR CELLS 1+ (0-0); GIANT THROMBO% (M) 1 % (0-0); LYMPHOCYTES % (M) 31 % (15-51); MICROCYTOSIS 1+ (0-0); MONOCYTE #M 0.1 10^3/ul (0.3-0.9); MONOCYTES % (M) 3 % (0-11); MYELOCYTES % (M) 1 % (0-0); PLATELET ESTIMATE DECREASED; POIKILOCYTOSIS 1+ (0-0); PROMYELOCYTES % (M) 1 % (0-0); REACTIVE LYMPHOCYTES #M 0.1 10^3/ul (0.0-0.0); REACTIVE LYMPHOCYTES% (M) 2 % (0-0); SEG NEUT #M 3.6 10^3/ul (1.7-7.5); SEGMENTED NEUTROPHILS (M) % 54 % (39-77); SMUDGE%M 6 % (0-0)
[2017-05-23] MEDS ORDERED: LACTULOSE 30ML CUP PO (13:30)
[2017-05-23] MEDS: SUCRALFATE (100 MG/ML) 10ML CUP GTB ×3 (13:56→20:55)
[2017-05-23] MEDS: COLISTIMETHATE 75 MG in SOD CHLORIDE 0.9% 100 ML IVPB (17:36)
[2017-05-23] MEDS: EPOETIN 10000 UNITS/1 ML INJ (ESRD) SC (17:37)
[2017-05-23] MEDS: DIVALPROEX SPRINKLE 125 MG CAP GTB (20:53)
[2017-05-23] MEDS: QUETIAPINE 25 MG TAB GTB (20:54)
[2017-05-24] MEDS: traMADol 50 MG TAB GTB ×5 (00:59→23:39)
[2017-05-24] MEDS: DEXTROSE 5%-0.9% NACL 1,000 ML IV ×2 (01:00→23:40)
[2017-05-24] MEDS: METOCLOPRAMIDE 10 MG INJ IV ×5 (01:03→23:39)
[2017-05-24] MEDS: IPRATROPIUM (HFA) 12.9 GM INHALER INH ×4 (01:05→19:33)
[2017-05-24] MEDS: PANTOPRAZOLE 40 MG INJ IV ×2 (05:28→17:13)
[2017-05-24] MEDS: L ACIDOPHIL/B LACTIS/B LONGUM CAPSULE PO ×3 (05:28→21:48)
[2017-05-24] MEDS: LEVOTHYROXINE 75 MCG TAB GTB (05:29)
[2017-05-24] MEDS: HYDROCORTISONE 100 MG INJ IV ×3 (05:30→21:48)
[2017-05-24] MEDS: NYSTATIN SUSP 5 ML CUP PO ×4 (08:27→21:58)
[2017-05-24] MEDS: SUCRALFATE (100 MG/ML) 10ML CUP GTB ×4 (08:27→21:58)
[2017-05-24] MEDS: MULTIVIT/CA CARB/B CMPLX/FA TAB GTB (08:28)
[2017-05-24] MEDS: FOLIC ACID 1 MG TAB GTB (08:28)
[2017-05-24] MEDS: COLLAGENASE 30 GM TUBE TOP (08:29)
[2017-05-24] MEDS: MIDODRINE 5 MG TAB GTB ×3 (08:29→21:59)
[2017-05-24] MEDS: SILVER SULFADIAZINE 1% 25 GM CR TOP (08:29)
[2017-05-24 09:07] LABS: ABNORMAL IP MESSAGE 1; HEMATOCRIT 31.4 % (37.0-47.0); HEMOGLOBIN 10.7 g/dl (12.0-16.0); MEAN CORPUSCULAR HEMOGLOBIN 31.6 pg (29.0-33.0); MEAN CORPUSCULAR HGB CONC 34.1 g/dl (32.0-37.0); MEAN CORPUSCULAR VOLUME 92.6 fl (82.0-101.0); MEAN PLATELET VOLUME 11.8 fl (7.4-10.4); NUCLEATED RED BLOOD CELLS% 0.6 /100WBC (0.0-0.0); PLATELET COUNT 52 10^3/UL (140-415); RED BLOOD COUNT 3.39 10^6/ul (4.20-5.40); RED CELL DISTRIBUTION WIDTH 17.1 % (11.5-14.5)
[2017-05-24 09:09] LABS: POSITIVE DIFF @See below
[2017-05-24 09:10] LABS: ADD MAN DIFF? YES
[2017-05-24 09:53] LABS: ALANINE AMINOTRANSFERASE 23 IU/L (13-69); ALBUMIN 2.5 g/dl (3.3-4.9); ALBUMIN/GLOBULIN RATIO 0.96; ALKALINE PHOSPHATASE 101 IU/L (42-121); ANION GAP 15 (8-16); ASPARTATE AMINO TRANSFERASE 21 IU/L (15-46); BLOOD UREA NITROGEN 21 mg/dl (7-20); CALCIUM 8.7 mg/dl (8.4-10.2); CARBON DIOXIDE 24 mmol/L (21-31); CHLORIDE 100 mmol/L (97-110); CREATININE 1.88 mg/dl (0.44-1.00); GLUCOSE 107 mg/dl (70-220); SODIUM 136 mmol/L (135-144); TOTAL PROTEIN 5.1 g/dl (6.1-8.1)
[2017-05-24 09:55] LABS: POTASSIUM 2.6 mmol/L (3.5-5.1)
[2017-05-24 10:01] LABS: ANISOCYTOSIS 1+ (0-0); BAND NEUTROPHILS % (M) 13 % (0-4); BURR CELLS 1+ (0-0); EOSINOPHILS % (M) 1 % (0-7); ERYTHROBLAST% (NRBC) (M) 2 % (0-0); GIANT THROMBO% (M) 1 % (0-0); HYPOCHROMASIA 1+ (0-0); LYMPHOCYTES #M 1.2 10^3/ul (0.8-2.9); LYMPHOCYTES % (M) 16 % (15-51); METAMYELOCYTES #M 0.3 10^3/ul (0.0-0.0); METAMYELOCYTES %M 4 % (0-0); MICROCYTOSIS 1+ (0-0); MONOCYTE #M 0.4 10^3/ul (0.3-0.9); MONOCYTES % (M) 5 % (0-11); MYELOCYTES % (M) 1 % (0-0); PLATELET ESTIMATE DECREASED; POIKILOCYTOSIS 1+ (0-0); POLYCHROMASIA 1+ (0-0); SEG NEUT #M 4.8 10^3/ul (1.7-7.5); SEGMENTED NEUTROPHILS (M) % 59 % (39-77); SMUDGE%M 5 % (0-0)
[2017-05-24] MEDS: TRIMETHOPRIM/SULFAMETHOXAZOLE 15 ML in DEXTROSE 5% 500 ML IVPB (10:06)
[2017-05-24] MEDS ORDERED: POTASSIUM CHLORIDE 40 MEQ in SOD CHLORIDE 0.9% 150 ML IVPB (11:00)
[2017-05-24] MEDS: POTASSIUM CHLORIDE 20 MEQ POWDER FOR ORAL SOLN GTB (11:13)
[2017-05-24] MEDS: POTASSIUM CHLORIDE 50 ML IVPB ×4 (11:14→14:26)
[2017-05-24] MEDS: COLISTIMETHATE 75 MG in SOD CHLORIDE 0.9% 100 ML IVPB (17:17)
[2017-05-24] MEDS: QUETIAPINE 25 MG TAB GTB (21:48)
[2017-05-24] MEDS: DIVALPROEX SPRINKLE 125 MG CAP GTB (21:59)
[2017-05-25] MEDS: IPRATROPIUM (HFA) 12.9 GM INHALER INH ×3 (01:18→14:54)
[2017-05-25] MEDS: HYDROCORTISONE 100 MG INJ IV ×2 (05:58→14:28)
[2017-05-25] MEDS: PANTOPRAZOLE 40 MG INJ IV ×2 (05:58→17:09)
[2017-05-25] MEDS: L ACIDOPHIL/B LACTIS/B LONGUM CAPSULE PO ×2 (05:59→14:27)
[2017-05-25] MEDS: LEVOTHYROXINE 75 MCG TAB GTB (05:59)
[2017-05-25] MEDS: traMADol 50 MG TAB GTB ×3 (05:59→17:09)
[2017-05-25] MEDS: METOCLOPRAMIDE 10 MG INJ IV ×3 (05:59→17:10)
[2017-05-25] MEDS: SILVER SULFADIAZINE 1% 25 GM CR TOP (09:00)
[2017-05-25] MEDS: COLLAGENASE 30 GM TUBE TOP (09:00)
[2017-05-25] MEDS: SUCRALFATE (100 MG/ML) 10ML CUP GTB ×3 (09:58→17:09)
[2017-05-25] MEDS: MULTIVIT/CA CARB/B CMPLX/FA TAB GTB (09:58)
[2017-05-25] MEDS: NYSTATIN SUSP 5 ML CUP PO ×3 (09:58→17:20)
[2017-05-25] MEDS: FOLIC ACID 1 MG TAB GTB (09:59)
[2017-05-25] MEDS: MIDODRINE 5 MG TAB GTB ×2 (09:59→14:27)
[2017-05-25] MEDS: TRIMETHOPRIM/SULFAMETHOXAZOLE 15 ML in DEXTROSE 5% 500 ML IVPB (10:55)
[2017-05-25] MEDS: EPOETIN 10000 UNITS/1 ML INJ (ESRD) SC (17:10)
[2017-05-25] MEDS: COLISTIMETHATE 75 MG in SOD CHLORIDE 0.9% 100 ML IVPB (17:13)
[2017-05-28 09:27] LABS: IMMEDIATE SPIN CROSSMATCH 1 2
== END 2017-05-25 19:37 | DRG 314 ==
LOC: ICU 05-15 12:20 → TEL 05-21 15:59 → E/R 15:54 → ICU 19:11
PROC: 5A1955Z Respiratory Ventilation, Greater than 96 Consecutive Hours (ICD-10-PCS; principal; 2017-05-04 19:15)
PROC: 4A033R1 Measurement of Arterial Saturation, Peripheral, Percutaneous Approach (ICD-10-PCS; 2017-05-04 19:15)
PROC: 30233N1 Transfusion of Nonautologous Red Blood Cells into Peripheral Vein, Percutaneous Approach (ICD-10-PCS; 2017-05-04 19:15)
PROC: 5A1D70Z Performance of Urinary Filtration, Intermittent, Less than 6 Hours Per Day (ICD-10-PCS; 2017-05-04 19:15)
PROC: 0DJ08ZZ Inspection of Upper Intestinal Tract, Via Natural or Artificial Opening Endoscopic (ICD-10-PCS; 2017-05-04 19:15)
PROC: 0D20XUZ Change Feeding Device in Upper Intestinal Tract, External Approach (ICD-10-PCS; 2017-05-04 19:15)
PROC: 02HV33Z Insertion of Infusion Device into Superior Vena Cava, Percutaneous Approach (ICD-10-PCS; 2017-05-04 19:15)
PROC: B544ZZA Ultrasonography of Left Jugular Veins, Guidance (ICD-10-PCS; 2017-05-04 19:15)
PROC: B544ZZA Ultrasonography of Left Jugular Veins, Guidance (ICD-10-PCS; 2017-05-04 19:15)
PROC: 02HV33Z Insertion of Infusion Device into Superior Vena Cava, Percutaneous Approach (ICD-10-PCS; 2017-05-04 19:15)
PROC: 05PYX3Z Removal of Infusion Device from Upper Vein, External Approach (ICD-10-PCS; 2017-05-04 19:15)
DX: T82.7XXA Infection and inflammatory reaction due to other cardiac and vascular devices, implants and grafts, initial encounter (principal); A40.3 Sepsis due to Streptococcus pneumoniae; N18.6 End stage renal disease; R65.21 Severe sepsis with septic shock; A41.1 Sepsis due to other specified staphylococcus; A41.89 Other specified sepsis; G92 Toxic encephalopathy; J96.10 Chronic respiratory failure, unspecified whether with hypoxia or hypercapnia; J18.9 Pneumonia, unspecified organism; Z99.11 Dependence on respirator [ventilator] status; N17.9 Acute kidney failure, unspecified; K56.609 Unspecified intestinal obstruction, unspecified as to partial versus complete obstruction; E87.0 Hyperosmolality and hypernatremia; K92.2 Gastrointestinal hemorrhage, unspecified; K94.23 Gastrostomy malfunction; K56.7 Ileus, unspecified; D62 Acute posthemorrhagic anemia; K22.10 Ulcer of esophagus without bleeding; Y83.3 Surgical operation with formation of external stoma as the cause of abnormal reaction of the patient, or of later complication, without mention of misadventure at the time of the procedure; Z93.0 Tracheostomy status; E87.5 Hyperkalemia; Z74.01 Bed confinement status; R13.10 Dysphagia, unspecified; I50.9 Heart failure, unspecified; I51.7 Cardiomegaly; K29.70 Gastritis, unspecified, without bleeding; Z66 Do not resuscitate; D63.1 Anemia in chronic kidney disease; E88.09 Other disorders of plasma-protein metabolism, not elsewhere classified; L89.90 Pressure ulcer of unspecified site, unspecified stage; E11.22 Type 2 diabetes mellitus with diabetic chronic kidney disease; Z93.3 Colostomy status; D69.6 Thrombocytopenia, unspecified; F41.8 Other specified anxiety disorders; E11.43 Type 2 diabetes mellitus with diabetic autonomic (poly)neuropathy; K31.84 Gastroparesis; E11.40 Type 2 diabetes mellitus with diabetic neuropathy, unspecified; E03.9 Hypothyroidism, unspecified; K70.10 Alcoholic hepatitis without ascites; F10.20 Alcohol dependence, uncomplicated; Z99.2 Dependence on renal dialysis; Y84.8 Other medical procedures as the cause of abnormal reaction of the patient, or of later complication, without mention of misadventure at the time of the procedure
CPT/HCPCS: 36415; 36430; 36600; 71010; 71045; 74000; 74018; 74176; 74250; 80048; 80053; 80069; 80076; 80202; 82533; 82550; 82803; 82962; 83540; 83605; 83735; 84100; 84145; 84484; 85014; 85018; 85025; 85610; 85730; 86644; 86850; 86900; 86901; 86920; 87040; 87070; 87081; 87086; 89220; 90935; 93005; 94002; 94003; 94640; 96374; 96375; 99291-25